=== PATIENT | male | born 1930 | race Caucasian/White ===

== ENCOUNTER → 2016-08-26 | Outpatient (REF) | payer OTHER ==
[~2016-08-26] MED LIST: ADV100INH INH; ADV500INH INH; BACI50OI EXT; BACITAB3 PO; BREO1INH INH; DILT120C82 PO; DOXY10CA PO; FERR325T3 PO; FLOM5CAP PO; GABA-279 PO; IPRASOL4 IN; KEFL250C6 PO; METF500T PO; METF500T4 PO; MIDO25TA PO; MULTCAP PO; PROT1TAB2 PO; SPIR1CAP INH; TIOT18INH INH; VITMTA PO; ZOCO20TA PO
== END ==
LOC: M LAB REF 12:30
PROVIDERS: ATTEND Nurse Practitioner Family
DX: I95.9 Hypotension, unspecified (principal)

== ENCOUNTER 2016-10-04 18:12 | Inpatient (IN) | payer OTHER ==
[~2016-10-04] VITALS: Ht 180.3 cm; Wt 82.1 kg
[2016-10-04] MEDS: BUDESONIDE 180MCG INHALER (PULMICORT FLEXHALER) INH SCH (02:05)
[~2016-10-04 18:12] MED LIST changes: +BACI500O74 EXT; -BACI50OI EXT
[2016-10-04 19:30] VITALS: BP 142/61
[2016-10-04] MEDS ORDERED: ONDANSETRON 4MG/2ML VIAL (J2405) As Ordered ONE (19:57)
[2016-10-04] MEDS ORDERED: HEPARIN SOD (PORCINE) 5000 UNITS/ML VIAL SC SCH (20:00)
[2016-10-04 20:30] VITALS: BP 119/60
[2016-10-04] MEDS ORDERED: GLUCOSE 4 GM CHEW TABLET PO PRN (20:30)
[2016-10-04] MEDS ORDERED: GLUCAGON FOR INJ 1 MG VIAL (J1610) SC PRN (20:30)
[2016-10-04] MEDS ORDERED: DEXTROSE 50% 50 ML SYRINGE IV PRN (20:30)
[2016-10-04 20:31] VITALS: BP 127/68
[2016-10-04] MEDS ORDERED: BACITAB3 PO (20:44)
[2016-10-04] MEDS ORDERED: CYCL5TA PO (20:44)
[2016-10-04] MEDS ORDERED: METOCLOPRAMIDE INJ 10MG/2ML VIAL (J2765) IV PRN (20:45)
[2016-10-04] MEDS ORDERED: PANT40TA2 PO (20:48)
[2016-10-04] MEDS ORDERED: DILT120C PO (20:48)
[2016-10-04] MEDS ORDERED: DICL100T6 PO (20:52)
[2016-10-04] MEDS ORDERED: FLOM5CAP PO (20:52)
[2016-10-04] MEDS ORDERED: PROA1AER INH (20:53)
[2016-10-04] MEDS ORDERED: SALI0.653 (20:53)
[2016-10-04] MEDS ORDERED: HumaLOG INSULIN (NovoLOG) PER UNIT SC SCH (21:00)
[2016-10-04] MEDS: SODIUM CHLORIDE NASAL 0.65% SPRAY BTL (OCEAN) SCH (21:00)
[2016-10-04 21:04] LABS: ABG BASE EXCESS -1.4 (-2.0-2.0); ABG HCO3 20.8 MEQ/L (22.0-26.0); ABG PARTIAL PRESSURE CO2 28.9 mmHg (35.0-45.0); ABG PARTIAL PRESSURE O2 55.8 mmHg (75.0-100.0); ABG STANDARD HCO3 23.2 MEQ/L (22.0-26.0); ABG TOTAL CO2 21.7 MEQ/L (23.0-31.0); ABG pH (ARTERIAL) 7.476 UNITS (7.350-7.450)
[2016-10-04 21:04] LABS: BASO % 0.4 % (0.0-1.0); EOS % 0.6 % (0.0-3.0); LARGE UNSTAINED CELL % 0.4 % (0.0-4.0); LYMPH # 0.4 K/mm3 (1.5-4.5); LYMPH % 5.5 % (24.0-44.0); MEAN CORPUSCULAR HEMOGLOBIN 31.1 pg (27.0-33.0); MEAN CORPUSCULAR HGB CONC 33.1 g/dl (32.0-36.5); MEAN CORPUSCULAR VOLUME 93.9 fl (80.0-96.0); MONO # 0.2 K/mm3 (0.0-0.8); MONO % 3.4 % (0.0-5.0); NEUTROPHILS # 6.2 K/mm3 (1.8-7.7); NEUTROPHILS % 89.8 % (36.0-66.0); PLATELET COUNT, AUTOMATED 185 k/mm3 (150-450); RED CELL DISTRIBUTION WIDTH 13.8 % (11.5-14.5); WHITE BLOOD COUNT 6.9 K/mm3 (4.0-10.0)
[2016-10-04] MEDS: IPRATROPIUM 0.5MG/ALBUTEROL 2.5MG INH SOL UD 3ML (DUONEB)(J7620) NEB PRN (21:13)
[2016-10-04 21:23] LABS: ALBUMIN 3.5 GM/DL (3.2-5.2); ALBUMIN/GLOBULIN RATIO 1.17 (1.00-1.93); ALKALINE PHOSPHATASE 123 U/L (45-117); ALT/SGPT 19 U/L (12-78); ANION GAP 10 MEQ/L (8-16); AST/SGOT 17 U/L (15-37); BILIRUBIN,TOTAL 0.9 MG/DL (0.2-1.0); BLOOD UREA NITROGEN 17 MG/DL (7-18); CALCIUM LEVEL 8.5 MG/DL (8.8-10.2); CARBON DIOXIDE LEVEL 24 MEQ/L (21-32); CHLORIDE LEVEL 105 MEQ/L (98-107); CREATININE FOR GFR 1.18 MG/DL (0.70-1.30); GLOMERULAR FILTRATION RATE > 60.0 (>35); GLUCOSE, FASTING 130 MG/DL (83-110); MAGNESIUM LEVEL 1.7 MG/DL (1.8-2.4); POTASSIUM SERUM 3.6 MEQ/L (3.5-5.1); SODIUM LEVEL 139 MEQ/L (136-145); TOTAL PROTEIN 6.5 GM/DL (6.4-8.2)
[2016-10-04 21:27] LABS: OSMOLALITY SERUM 291 MOSM/KG (280-301)
[2016-10-04] MEDS ORDERED: LevoFLOXacin IV 500 MG in APPROPRIATE DILUENT 1 EA IV SCH (22:00)
[2016-10-04] MEDS: ACETAMINOPHEN 650 MG SUPP PR PRN ×2 (22:50→23:15)
[2016-10-04 22:57] LABS: FERRITIN 144 NG/ML (26-388); PERCENT SATURATION 18.7 % (19.7-37.4); TOTAL IRON BINDING CAPACITY 321 UG/DL (250-450)
[2016-10-04 23:07] LABS: ERYTHROCYTE SEDIMENTATION RATE 21 mm/hr (0-30)
[2016-10-04] MEDS: LACTOBACILLUS ACIDOPHILUS CAP (BACID) PO SCH (23:12)
[2016-10-04] MEDS: NS 1,000 ML IV SCH (23:12)
[2016-10-04] MEDS: PANTOPRAZOLE 40MG INJ (PROTONIX) (C9113) IV SCH (23:13)
--- NOTE | 2016-10-04 23:13 | HPEPDOC ---
General Date of Admission Oct 04, 2016 at 19:25 Primary Care Physician: Minda Amaro Other Providers Cardiology: Dr. Hillman Attending Physician: ARNOLD SUTTON DO Chief Complaint The patient is a 86-year-old male admitted with a reason for visit of N/V/ Diarrhea. Source: Patient Exam Limitations: Clinical conditions, Physical impairment, Hard of hearing, Mild cognitive slowing, Other (Confused) Timing/Duration: Day(s) Severity: Severe Associated Symptoms: Cough, Fever, Chills, Loss of appetite, Malaise, Nausea, Vomiting, Shortness of breath, Weakness, Dizziness History of Present Illness 86 years old male with PMH of syncope, orthostatic hypotension, bradycardia s/p PPM, GERD, NIDDM2, iron deficiency anemia, COPD/emphysema GOLD stage 1, HTN, GERD, DJD, DLP, BPH, diverticulosis presented with nausea,vomiting, diarrhea, SOB. He was transferred from [facility]. At time of interview patient was confused wasn't able to answer much of the questions appropriately, however he was AAOx3 to person, place and year. He was able to provide that his symptoms started around 1 week ago with initially shortness of breath and chill and cough, no sputum, then over the past two days he developed nausea, vomiting , and diarrhea for multiple times a day and the stool eventually turned black. There is a question if he fell and landed on his right side, further questioning didn't produce any result, patient was confused. He is currently on 2L NC, he doesn't use O2 at home. He has T of 103.7 currently, EKG from [facility] shows PT prolongation, Anion Gap was 18 and Cr was 1, Trop was 0.01. Patient admits to chill, vomiting, diarrhea, shortness of breath. Denies chest pain, abdominal pain, problems with urination. According to nurses note however patient admits to yellow sputum to her, patient denies sputum when I asked her. According to pharmacy patient's girlfriend who lives with patient has been giving him his medications. Patient's answers doesn't appears to be reliable, he is a poor historian. Home Medications Scheduled (Saline Nasal [place]) 0.65 % Spr 0.65 % NA BID (Reported) Diltiazem HCl (Diltiazem HCl ER) 120 Mg Cap 120 MG PO DAILY (Reported) Fluticasone/Vilanterol (Breo Ellipta 100-25 Mcg/INH) 1 Inh Inh 1 PUFF INH DAILY (Reported) Gabapentin (Gabapentin) 100 Mg Cap 200 MG PO BID (Reported) Lactobacillus Acidophilus (Bacid) 1 Tab Tab 1 TAB PO BID (Reported) Metformin Hydrochloride (Metformin HCl) 500 Mg Tab 500 MG PO QHS (Reported) Multivitamins *[facility] STOCKED* (Thera M Plus *[facility] STOCKED*) 1 Tab Tab 1 TAB PO DAILY (Reported) Pantoprazole Sodium (Pantoprazole Sodium) 40 Mg Tab 40 MG PO DAILY (Reported) Simvastatin (Zocor) 20 Mg Tab 20 MG PO QHS (Reported) Tamsulosin Hydrochloride (Flomax) 0.4 Mg Cap 0.4 MG PO DAILY (Reported) Tiotropium [place] Monohydrate (Spiriva Handihaler) 18 Mcg Cap 1 INHALATION INH DAILY (Reported) Scheduled PRN Albuterol Sulfate (Proair Hfa) 108 Mcg/Act Aer 1 PUFF INH Q4H PRN PRN SHORTNESS OF BREATH (Reported) Albuterol/Ipratropium (Ipratropium [place]/Albut 0.5-2.5 (3) mg/3Ml) 1 Shon Shon 1 SHON IN Q4HP PRN PRN WHEEZING (Reported) Allergies Coded Allergies: Codeine (Verified Allergy, Unknown, 10/11/12) Valsartan (Verified Allergy, Unknown, 10/11/12) Propoxyphene (Unverified Adverse Reaction, Unknown, CAUSED AGITATION, ) PT TAKES DARVOCET EVERDAY AT HOME Past Medical History Medical History * syncope, * orthostatic hypotension * bradycardia s/p PPM * GERD * NIDDM2 * iron deficiency anemia * COPD/emphysema GOLD stage 1 * HTN * GERD * DJD * DLP * BPH * diverticulosis Surgical History * Appendectomy * Cholecystectomy * Back Surgery * Left inguinal hernia repair * Permanent pacemaker placement for bradycardia * EGD/Colonoscope Family History Significant Family History: Noncontributory Social History * Smoker: Denies, former Smoker, quit greater than 1 year Alcohol: Denies Drugs: denies Recent Travel/Sick Contacts: Denies: Recent sick contacts, Recent travel Lives with girlfriend 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, 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 Review of Symptoms Constitutional: Reports: Chills, Fever, Lethargy, Malaise, Weight Loss (4 pounds over past few weeks ) Eyes: Denies: Vision change ENT: Reports: Other Symptoms (cough but no sputum per patient), Denies: Sore Throat Skin: Denies: Rash Pulmonary: Reports: Cough, Dyspnea Cardiovascular: Reports: Lt Headedness, Denies: Chest Pain Gastrointestinal: Reports: Diarrhea, Nausea, Other Symptoms (black looking stool), Vomiting Genitourinary: Denies: Dysuria, Frequency, Hematuria, Incontinence, Other Symptoms, Retention Hematologic: Reports: Other Hematologic (black stool) Musculoskeletal: Denies: Neck Pain Neurological: Reports: Weakness Other systems Patient is a poor historian and currently confused Physical Examination General Exam: Positive: Cooperative, Mild Distress, Other (confused, doesn't answer questions apropriately ) Eye Exam: Positive: EOMI, PERRLA ENT Exam: Positive: Atraumatic, Negative: Mucous membr. moist/pink (dry) Neck Exam: Positive: Supple, Negative: JVD Chest Exam: Positive: Diminished, Rhonchi (mild b/l) Heart Exam: Positive: Normal S1, Normal S2, Other (distant heart sounds due to increased AP diameter of chest), Tachycardic Abdomen Exam: Positive: Normal bowel sounds, Soft, Negative: Tenderness Extremity Exam: Negative: Clubbing, Cyanosis, Edema, Tenderness Skin Exam: Negative: Rash Neuro Exam: Positive: Cranial Nerves 3-12 NL, Strength at 5/5 X4 ext Psych Exam: Positive: Anxiety, Oriented x 3 Vital Signs T 103.8, P 115, RR 26, BP 145/61, O2 Sat 92% 2L NC Laboratory Data Labs 24H Laboratory Tests 2 10/04/16 20:32: Urine Amorphous Sediment , Urine Appearance CLEAR, Urine Color YELLOW, Urine pH 5.0, Urine Specific [place] 1.035, Urine Protein NEGATIVE, Urine Glucose (UA) NEGATIVE, Urine Ketones NEGATIVE, Urine Urobilinogen 0.2, Urine Bilirubin NEGATIVE, Urine Leukocyte Esterase NEGATIVE, Urine Bacteria (Auto) NEGATIVE, Urine Blood NEGATIVE, Urine Calcium Carbonate Cryst(Auto) , Urine Calcium Oxalate Cryst (Auto) , Urine Calcium Phosphate Kadi (Auto) , Urine Cellular Casts , Urine Cystine Crystals , Urine Granular Casts (Auto) , Urine Hyaline Casts (Auto) 0, Urine Leucine Crystals , Urine Mucus (Auto) , Urine Nitrite NEGATIVE, Urine Oval Fat Bodies (Auto) , Urine RBC (Auto) 1, Urine Renal Epithelial Cells , Urine Sperm (Auto) , Urine Squamous Epithelial Cells 0, Urine Transitional Epithelial Cells , Urine Trichomonas (Auto) , Urine Triple Phosphate Cryst (Auto) , Urine Tyrosine Crystals , Urine Uric Acid Crystals ( Auto) , Urine WBC (Auto) 0, Urine Waxy Casts (Auto) , Urine Yeast-Like Cells ( Auto) 10/04/16 20:43: White Blood Count 6.9, Red Blood Count 4.72, Hemoglobin 14.7, Hematocrit 44.3, Mean Corpuscular Volume 93.9, Mean Corpuscular Hemoglobin 31.1, Mean Corpuscular Hemoglobin Concent 33.1, Red Cell Distribution Width 13.8, Platelet Count 185, Neutrophils (%) (Auto) 89.8H, Lymphocytes (%) (Auto) 5.5L, Monocytes (%) (Auto) 3.4, Eosinophils (%) (Auto) 0.6, Basophils (%) (Auto) 0.4, Neutrophils # (Auto) 6.2, Lymphocytes # (Auto) 0.4L, Monocytes # (Auto) 0.2, Eosinophils # (Auto) 0.0, Basophils # (Auto) 0.0, Large Unclassified Cells # 0.0 , Large Unclassified Cells % 0.4 10/04/16 20:49: Salicylates Level < 1.7L 10/04/16 20:51: Arterial Blood pH 7.476H, Arterial Blood Partial Pressure CO2 28.9L, Arterial Blood Partial Pressure O2 55.8L, Arterial Blood Total CO2 21.7L, Arterial Blood HCO3 20.8L, Arterial Blood Base Excess -1.4, Arterial Blood Oxygen Saturation 90.8L, Blood Gas Bicarbonate Standard 23.2 CBC/BMP Laboratory Tests 10/04/16 20:43 Red Blood Count 4.72, Mean Corpuscular Volume 93.9, Mean Corpuscular Hemoglobin 31.1, Mean Corpuscular Hemoglobin Concent 33.1, Red Cell Distribution Width 13.8 , Neutrophils (%) (Auto) 89.8 H, Lymphocytes (%) (Auto) 5.5 L, Monocytes (%) ( Auto) 3.4, Eosinophils (%) (Auto) 0.6, Basophils (%) (Auto) 0.4, Neutrophils # ( Auto) 6.2, Lymphocytes # (Auto) 0.4 L, Monocytes # (Auto) 0.2, Eosinophils # ( Auto) 0.0, Basophils # (Auto) 0.0 Microbiology Microbiology 10/04/16 Blood Culture, Received Pending 10/04/16 Blood Culture, Received Pending 10/04/16 Respiratory Virus Panel (PCR) (LU), Received Pending 10/04/16 Urine Culture, Received Pending RAD Interpretation STUDY: CXR (From [facility]) Rad Actions: Wet Read Reviewed, Films Reviewed, Other Rad Comments: (From [facility], reviewed the CD, no obvious infiltrates) STUDY: CT Abdomen and Pelvis from [facility] Rad Actions: Report Reviewed, Films Reviewed, Other Rad Comments: (RLL nodual, soft tissue nodual 12 mm anterior left hemipelvis, diverticulosis) STUDY: CT Chest (Done at [facility]) Rad Actions: Wet Read Reviewed, Report Not Available, Films Reviewed, Other Rad Comments: (bilateral low lobes infiltrates) Assessment/Plan 86 years old male with PMH of syncope, orthostatic hypotension, bradycardia s/p PPM, GERD, NIDDM2, iron deficiency anemia, COPD/emphysema GOLD stage 1, HTN, GERD, DJD, DLP, BPH, diverticulosis who was transferred from [facility] presented with: 1. Severe Sepsis likely secondary to bilateral lower lob infiltrates shows on CT Chest L>R, official report pending, will follow. - WBC at [facility] was 11.8, here was 6.9, CRP/ESR, Resp Panel pending, will follow - Start IV Abx with Levoquin 500 mg q24 hours due to prolonged QT and reduced CrCl adjusted with pharmacy - DuoNebs with Inhaled steroid, hold home inhaler for now, consider IV steroid if patient develop wheezing - Continue O2 at 2L and titrate between 88-92% due to mild COPD at baseline - LA 1.8, UA negative, GI panel is pending due to diarrhea, blood cultures pending - Close monitoring due to confusion, T of 103.7, tachycardia, tachypnea, guarded prognosis due to age 2. Hypoxemia respiratory failure 2/2 sepsis and CAP - See above, patient doesn't use O2 at home and is now on 2 L NC 3. Nausea/vomiting/diarrhea - Etiology unclear likely related to severe sepsis - CT of A&P at [facility] didn't have acute findings - GI panel pending - IVF with NS at 120 ml/h - Clear liquid diet for now and aspiration precaution 4. Near Syncope with fall likely 2ndary to sepsis - Landed on elbow, didn't hit head and no LOC - continue to monitor - He did have history of syncope and orthostatic hypotension - Hold statin for now due to it can interact with Diltiazem and cause muscle weakness - Hold Flomax for now due to it can cause dizziness and fall, restart as needed - Fall precaution - PT consulted - Orthostatic VS 5. Confusion likely due to encephalopathy from severe sepsis - continue plan above 6. Dark stool in diarrhea possible GI bleed - Fecal occult blood ordered, result pending - Hold chemical DVT prophylaxis - Continue SCD/Teds 7. QT prolongation on EKG done in [facility], likely from medication and acute illness - QT/QTc was 388/487 at [facility] - Patient did receive 4mg Zofran before the EKG was taken - Will only give Reglan here for n/v - repeat EKG shows QT of 336 8. Elevated anion gap of 18 in [facility] - Repeat gap was only 10 - Possible due to severe sepsis - continue close monitoring 9. New CT findings of RLL nodule and 12 mm anterior left hemipelvic nodule on CT A&P at [facility] - CT chest result pending - Patient likely need outpatient follow up. 10. Hx of syncope, orthostatic hypotension - Please see above, continue to monitor 11. Bradycardia s/p PPM - Repeat EKG in AM, no elevation of troponin 12. GERD - Con PPI 13. NIDDM2 -Hold Metformin -ISS 14. Iron deficiency anemia -Check Iron/B12/Folate 15. COPD/emphysema GOLD stage 1 -Had exacerbation [place] [address] Garcia -Continue to monitor -Possible adding IV steroid 16. HTN -Continue Diltiazem CD 120 mg PO daily hold for SBP <130 or HR <65 17. DJD -Con tylenol 18. DLP -Hold Statin for now due to it cause muscle weakness with Cardizem 19. BPH - Hold Flomax for now due to fall 20. diverticulosis - Close monitor -Possible GI bleed DVT prophylaxis: SCD only for now due to possible GI bleed Code Status: Patient would like to be Full Code Addendum: At 12:30 Nurse reported patient's BP dropped to 70/50 on manual BP. Patient likely has progression of severe sepsis and possible septic shock. Patient was seen my resident and attending again in the room. Will start patient on empiric antibiotic, Vancomycin 1g qdaily and Zosyn 3.375 g q6H. Give him 2 L fluid boluses. If patient's BP respond poorly or if patient's BP remains low will transfer patient to ICU. Plan / VTE VTE Prophylaxis Ordered?: Yes (scd only due to possible GI bleed) GME ATTESTATION GME ATTESTATION My preceptor for this patient encounter was physically present in the building during the encounter and was fully available. As needed, all aspects of the patient interview, examination, medical decision making process, and medical care plan development were reviewed and approved by the preceptor. Preceptor is aware and concurs with the plan as stated in the body of this note and will attest to such by his/her cosignature. SHAVONNE YIP DO Oct 04, 2016 23:12
[2016-10-04 23:55] VITALS: BP 70/50
[2016-10-05] VITALS (41 sets, daily range): BP systolic 72–118; BP diastolic 40–64; O2SAT 94
[2016-10-05] MEDS ORDERED: NS 1,000 ML IV ONE ×4 (00:30→04:30)
[2016-10-05] MEDS ORDERED: VANCOMYCIN HCL 1,000 MG, VIAL MATE ADAPTER 1 EACH in D5W 250 ML IV ONE (01:00)
--- NOTE | 2016-10-05 01:10 | PHACANCOPD ---
PHARMACY VANCOMYCIN DOSING Pt Demographics Demographics Patient Age:86 , Weight:76.200 , Gender: male Adjusted Body Weight Date: 10/05/16, Adjusted Body Weight: [62] Kg Events Past 24 Hours Events Past 24 Hours: NO: Change in CrCl, Dialysis, Diuretic Therapy, Elevation in WBC, Fever, Other, Pending Diagnostics, Pending Procedures Vancomycin Vancomycin Target Ranges: 15-20 mcg/ml Vancomycin Load Y/N: Yes Load Dose Date Time Vancomycin Load Dose: 1500MG Date: 10-05 Time: 0200 Vancomycin Dose Date: 10/05/16. Current Vancomycin Dose: [1000MG Q24H] Intermittent Dosing?: No Labs Labs Item Value Date Time White Blood Count 6.9 K/mm3 10/04/162042 Creatinine 1.18 MG/DL 10/04/162042 Vital Signs Label Value Date Time Patient Temperature 100.0 degrees F 10/04/16 2355 Temperature Source Core 10/04/16 2355 Micro Microbiology 10/04/16 Blood Culture, Received Pending 10/04/16 Blood Culture, Received Pending 10/04/16 Respiratory Virus Panel (PCR) (LU) - Final, Complete 10/04/16 Urine Culture, Received Pending Creatinine Clearance Date:10/05/16. Creatinine Clearance: [34]. Pending Labs Trough 04-04 @0000 Assessment and Plan Maintaining Current Dose?: Yes Reason for dose change: No Dose Change Pharmacist Note Pharmacist Note Date: 10/05/16. Pharmacist note:Dosed at 1000mg q24h with a trough ordered for 04- 04 @0000. Will continue to monitor and make adjustments as needed. JERO DAVIS PHARMACY Oct 05, 2016 01:10
[2016-10-05] MEDS: PIPERACILLIN/TAZOBACTAM SOD 3.375 GM in D5W MINI-BAG PLUS 50 ML IV SCH ×4 (02:00→20:21)
[2016-10-05] MEDS ORDERED: BUDESONIDE 0.5 MG/2 ML INHALATION SUSPENSION INH ONE (02:30)
[2016-10-05] MEDS: ACETAMINOPHEN 650 MG SUPP PR PRN (02:30)
[2016-10-05] MEDS: IPRATROPIUM 0.5MG/ALBUTEROL 2.5MG INH SOL UD 3ML (DUONEB)(J7620) NEB PRN ×2 (02:48→19:39)
[2016-10-05] MEDS ORDERED: VANCOMYCIN HCL 500 MG in D5W MINI-BAG PLUS 100 ML IV ONE (03:00)
[2016-10-05] MEDS: MAG SULF 1GM/100ML (MAG RUN) 1 GM in APPROPRIATE DILUENT 1 EA IV ONE ×2 (04:20→05:36)
[2016-10-05 04:33] LABS: BLOOD UREA NITROGEN 18 MG/DL (7-18); CARBON DIOXIDE LEVEL 21 MEQ/L (21-32); CHLORIDE LEVEL 108 MEQ/L (98-107); CREATININE FOR GFR 1.25 MG/DL (0.70-1.30); GLUCOSE, FASTING 139 MG/DL (83-110); POTASSIUM SERUM 3.3 MEQ/L (3.5-5.1)
[2016-10-05 04:45] LABS: ABG BASE EXCESS -4.8 (-2.0-2.0); ABG HCO3 18.1 MEQ/L (22.0-26.0); ABG PARTIAL PRESSURE CO2 27.6 mmHg (35.0-45.0); ABG STANDARD HCO3 20.4 MEQ/L (22.0-26.0); ABG pH (ARTERIAL) 7.435 UNITS (7.350-7.450)
[2016-10-05 04:45] LABS: DIFF SLIDE NUMBER 53; MEAN CORPUSCULAR HEMOGLOBIN 30.1 pg (27.0-33.0); PLATELET COUNT, AUTOMATED 169 k/mm3 (150-450); RED CELL DISTRIBUTION WIDTH 13.8 % (11.5-14.5); WHITE BLOOD COUNT 18.2 K/mm3 (4.0-10.0)
[2016-10-05 04:51] LABS: CALCIUM LEVEL 7.3 MG/DL (8.8-10.2)
[2016-10-05] MEDS ORDERED: NOREPINEPHRINE 4 MG/4 ML AMP As Ordered ONE (05:18)
[2016-10-05] MEDS ORDERED: NOREPINEPHRINE BITARTRATE 8 MG in D5W 500 ML IV SCH (05:24)
[2016-10-05] MEDS ORDERED: KCL 20MEQ IN 100ML SWI (KRUN) 20 MEQ in APPROPRIATE DILUENT 1 EA IV ONE ×2 (05:30)
[2016-10-05] MEDS ORDERED: MAG SULF 1GM/100ML (MAG RUN) 1 GM in APPROPRIATE DILUENT 1 EA IV ONE (05:30)
[2016-10-05 05:34] LABS: BANDS 4 % (< 11)
[2016-10-05] MEDS: NS 1,000 ML IV SCH (05:42)
[2016-10-05] MEDS ORDERED: HumaLOG INSULIN (NovoLOG) PER UNIT SC SCH ×2 (06:00→07:30)
[2016-10-05] MEDS ORDERED: NS 1,000 ML IV SCH (06:15)
[2016-10-05] MEDS ORDERED: PNEUMOCOCCAL VACCINE 0.5ML SYRINGE(90732) PNEUMOVAX 23 IM SCH (06:15)
--- NOTE | 2016-10-05 07:08 | RO ---
DATE OF PROCEDURE: 10/05/2016 Time patient was seen was at 0510 hours. PREPROCEDURE DIAGNOSIS: Hypotension. POSTPROCEDURE DIAGNOSIS:Hypotension PROCEDURE: Right IJ central line placement. SURGEON: Boogie Garcia DO NUTRITION SERVICES WORKER: Lisy Light DO ANESTHESIA: 1% lidocaine INDICATION: This is an 86-year-old male with severe sepsis, hypotension and septic shock with bilateral lower lobe infiltrates, left side greater than the right side. CONSENT: Detailed explanation of the procedure, treatment options, risks including but not limit to infection, bleeding, damage to the surrounding tissue , and the benefits were explained to the patient. A written informed consent was obtained. TECHNIQUE: A time out was performed identifying correct procedure, correct location with the nursing staff. The right side of the neck was prepped with 2% chlorhexidine and draped with full sterile sheet in the usual fashion. 1% lidocaine was administered subcutaneously for local anesthesia. The right IJ vein was accessed under ultrasound guidance with an 18 gauge thin wall needle. A triple lumen catheter was inserted via Seldinger technique. Blood was withdrawn from lumens and flushed with normal saline. The catheter was sutured in placed and sterile dressing was applied over the side prior to removal of the drapes. The patient tolerated the procedure well and there were no complications. Chest x-ray was done and confirmed that the TLC was in the correct location. ESTIMATED BLOOD LOSS: Less than 10 mL. COMPLICATIONS: None. The patient has been discussed with attending doctor, Dr. Garcia. My preceptor for this patient encounter was Dr. Boogie Garica. The preceptor was physically present in the room and assisted and performed critical parts of the exam. Dr. Garcia was at bedside during the encounter and was fully available. As needed, all aspects of the patient interview, examination, medical decision making process, and medical care plan development were reviewed and approved by the preceptor. The preceptor is aware and concurs with the plan as stated in the body of this note and will attest to such by his/her cosignature. I, Boogie Garcia, performed the above procedure with the assistance of the resident Dr. Light. I agree with the above. [facility]
[2016-10-05 07:30] LABS: ANION GAP 12 MEQ/L (8-16); SODIUM LEVEL 141 MEQ/L (136-145)
[2016-10-05] MEDS: SUCRALFATE SUSP 1GM/10ML UD PO SCH ×3 (07:30→17:33)
--- NOTE | 2016-10-05 07:38 | CCN ---
DATE: 10/05/2016 Critical care time is 1 hour. This excludes all procedures. I was called urgently to the patient's bedside for persistent hypotension despite at least 4 liters of IV fluids. The patient was awake, able to tell me his name. He is known to me for mild COPD and is followed in my office. He did not recognize me right away. He was unable to give much history. Apparently, he was has had multiple days of cough and shortness of breath and most recently two days of nausea, vomiting and diarrhea. He was a direct transfer from [facility]. He presented confused, thought to have a metabolic encephalopathy from sepsis. Question of GI bleed, more than adequate hemoglobin. PHYSICAL EXAMINATION: Temperature is 100.2, pulse is 95, respiratory rate is 20, blood pressure is 80/50 with a mean arterial pressure of 60, oxygen saturation 94% on 2 liters. GENERAL: The patient is anxious, tachypneic, laying in bed. He is not using accessory muscles of breathing. HEENT: Sclerae clear and anicteric. Mucous membranes are dry. He is edentulous. Tongue is midline. NECK: Supple. No tracheal deviation or mass. No thyromegaly. LYMPHS: No cervical, supraclavicular, or axillary adenopathy. CARDIAC: Tachycardic. S1 and S2 without audible murmur, rub or gallop. No elevated JVP. PMI is nondisplaced. PULMONARY: Decreased breath sounds bilaterally. I do not did not auscultate any rhonchi or wheeze anteriorly. ABDOMEN: Soft, nontender, nondistended with hypoactive bowel sounds. EXTREMITIES: No cyanosis, clubbing or edema. SKIN: No rashes, jaundice or bruising. MUSCULOSKELETAL: Muscle tone is normal for stated age. No evidence of fracture or joint effusion. NEUROLOGIC: Some confusion but is alert to person. Expresses understanding of the situation. No unilateral weakness or tremor. LABORATORY EVALUATION: White blood cell count of 6.9 which is now 18. Hemoglobin of 11.6 from 14, this is after at least 4 liters of fluid. Platelet count of 169. Sodium is 141, potassium is 3.3, chloride is 108, bicarb is 21, anion gap is 12, albumin of 3.5. Sodium is 141, potassium 3.3, chloride 108, BUN is 18, creatinine is 1.25, fasting glucose is 139. Most recent arterial blood gas shows a pH of 7.44, pCO2 of 28, PaO2 of 64 on 2 liters of oxygen. Chest CT from October 04, 2016 shows a dense left lower lobe infiltrate. No other significant findings. IMPRESSION: 1. Septic shock, likely from left lower lobe pneumonia. I have discontinued Levaquin. He is on Zosyn and vancomycin. Will initiate Levophed. CVP is around 12-14. Will check CV02 to ensure adequate cardiac output. The patient is FULL CODE and would like everything done at this point in time. 2. Left lower lobe pneumonia. Agree with current antibiotic coverage until infectious source identified. Will continue with mucociliary techniques. 3. Hypokalemia. Replaced IV. 4. Hypomagnesemia. Replaced IV. Patient recently with diarrhea. 5. Questionable history of GI bleed. The patient had dark stools; however, I believe he is on iron replacement. Continue to monitor for signs of GI bleed. He has had no bowel movement since he has been admitted. 6. Lactic acidosis. Will continue to monitor for fluid responsiveness and urine output. Critical care time 1 hour. This excludes all procedures.
--- NOTE | 2016-10-05 08:02 | REP ---
Clinical: Central line placement. Comparison: 05/15/2016. Findings: Right IJ line with tip in the SVC. Mediastinum and cardiac silhouette stable. Lung kwok demonstrate diffuse chronic interstitial changes. Left lower lobe consolidation/atelectasis and right basilar atelectasis cannot be excluded. No obvious effusion. No pneumothorax. Skeletal structures intact. Impression: 1. Right IJ line with tip in the SVC. No pneumothorax. 2. Left lower lobe/retrocardiac infiltrate and bibasilar atelectasis. Signed by Noah Rodriguez MD 10/05/2016 07:53 A
[2016-10-05] MEDS ORDERED: POTASSIUM CHLORIDE 10 MEQ SR TABLET PO ONE (08:15)
[2016-10-05] MEDS: TIOTROPIUM INHALER/CAPSULE (SPIRIVA) INH SCH (08:43)
[2016-10-05] MEDS: BUDESONIDE 180MCG INHALER (PULMICORT FLEXHALER) INH SCH ×2 (08:43→19:38)
[2016-10-05] MEDS: TAMSULOSIN 0.4 MG CAP PO SCH (08:53)
[2016-10-05] MEDS: LACTOBACILLUS ACIDOPHILUS CAP (BACID) PO SCH ×2 (08:53→20:21)
[2016-10-05] MEDS: PANTOPRAZOLE 40MG INJ (PROTONIX) (C9113) IV SCH ×2 (08:54→20:21)
[2016-10-05] MEDS: MULTIVITAMINS/MINERALS THERAP 1 TAB PO SCH (08:54)
[2016-10-05] MEDS: SODIUM CHLORIDE NASAL 0.65% SPRAY BTL (OCEAN) SCH ×2 (08:54→20:21)
[2016-10-05] MEDS: ACETAMINOPHEN TAB 650MG DOSE (2X325MG) PO PRN ×2 (09:11→17:33)
--- NOTE | 2016-10-05 11:19 | ECGEPIP ---
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
--- NOTE | 2016-10-05 11:19 | ECGEPIP ---
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
--- NOTE | 2016-10-05 11:22 | ECGEPIP ---
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
[2016-10-05] MEDS: HumaLOG INSULIN (NovoLOG) PER UNIT SC SCH ×3 (11:58→21:00)
[2016-10-05] MEDS: KCL 20MEQ in NS 1000ML 1,000 ML IV SCH (13:14)
--- NOTE | 2016-10-05 14:56 | IPN ---
DATE: 10/05/2016 Patient seen and examined. Admitted overnight. This morning reported improvement of strength. Continues to be very weak. Denies any shortness of breath, report of cough. Denies any chest pain, pressure or discomfort. The patient is still on pressors, Levophed. Reported nausea and vomiting have resolved, as well as diarrhea. Denies any abdominal pain. VITAL SIGNS: Temperature 98.7, pulse 82, respirations 20, blood pressure 101/57, pulse oximetry 96% on room air. LABORATORIES: WBC 18, hemoglobin and hematocrit 11.6/36.2, platelets 169. Chemistries: Sodium 141, potassium 3.3, chloride 108, bicarb 21, BUN 18, creatinine 1.25, lactic acid down to 2.1. PHYSICAL EXAMINATION: GENERAL: Patient is comfortable in no acute distress. HEENT: Normocephalic, atraumatic. NECK: Supple. PULMONARY: Mild bilateral rhonchi. CARDIAC: Regular rate and rhythm. Normal S1 and S2. ABDOMEN: Soft, nontender, nondistended. EXTREMITIES: No edema bilateral lower extremities. ASSESSMENT/PLAN: This is a 86-year-old male patient with underlying medical history of syncope, orthostatic hypotension, bradycardia, status post pacemaker, GERD, nci-eokmzvd-eneyrlmfq diabetes, iron deficiency anemia, chronic obstructive pulmonary disease (COPD), emphysema GOLD stage 1, hypertension, GERD, degenerative joint disease (DJD), dyslipidemia, benign prostatic hypertrophy (BPH), diverticulosis, presented with nausea, vomiting, shortness of breath, diarrhea and cough. Admitted with severe sepsis secondary to pneumonia. 1. Severe sepsis, septic shock secondary to bilateral lower lobe pneumonia. Oxygen supplementation. Followup C-reactive protein. Followup WBC. Respiratory panel negative. Initially given Levaquin. Currently antibiotics switched to Zosyn and vancomycin. Followup C-reactive protein. Followup WBC. Oxygen supplementation. Patient is on pressor, Levophed. Followup CVP. Repeat lactic acid. Initial CVP was 14. Fluids were held. Later CVP was 9. Maintenance fluids were restarted. Will continue to monitor. 2. Hypoxia. Likely secondary to sepsis and pneumonia. Continue oxygen supplementation. 3. Nausea, vomiting, diarrhea. Unclear etiology. Possibly related to underlying infection. CT scan of the abdomen and pelvis from [place] shows no significant acute findings. GI panel if diarrhea persistent. IV fluids for maintenance. Advance diet as tolerated. Aspiration precautions. 4. Pelvic lesions, questionable on CT scan in [place]. Will repeat a CT of the abdomen with contrast tomorrow to further assess. Might need outpatient followup in terms of biopsy with resolution of current symptoms. 5. Near syncope. Likely secondary to sepsis, septic shock and hypotension. Will do physical therapy after the patient is recovered for precautions. Physical therapy once the patient is improved. 6. Confusion. Likely encephalopathic secondary to septic shock. Supportive care. Treatment for sepsis as above. 7. Dark stool diarrhea. Rule out GI bleed. Followup fecal occult. Follow hemoglobin and hematocrit. Hold anticoagulation for now. 8. QTc prolongation on EKG. Monitor on telemetry. Repeat EKG shows normal QTc. 9. CT scan finding of right lower lobe nodules and 11 mm anterior hemipelvic nodules. Repeat CT scan of the abdomen and pelvis. Will need outpatient followup, possible biopsy. 10. History of syncope. Will continue to monitor. Will do physical therapy and orthostatics once the patient is improved. 11. History of bradycardia. Patient has a pacemaker. 12. Gastroesophageal reflux disease (GERD). Continue proton pump inhibitor (PPI). 13. Ira-hbmpkgt-hixxqwili diabetes. Holding metformin. Insulin as per protocol. Followup fingerstick. 14. Iron deficiency anemia. Continue to follow hemoglobin and hematocrit. Anemia workup as ordered. 15. COPD. Pulmonology consulted. Continue to monitor. Patient currently not having significant wheeze. Nebulizer treatment. Pulmicort, Spiriva. Supportive care. 16. Hypertension. Continue diltiazem. Monitor blood pressure. 17. Degenerative joint disease (DJD). Supportive care. Continue medications as ordered. 18. Dyslipidemia. Continue statin. 19. Benign prostatic hypertrophy (BPH). Continue Flomax. 20. Diverticulosis. Close monitoring. 21. Deep vein thrombosis (DVT) prophylaxis. Sequential compression devices (SCD). If the patient's hemoglobin and hematocrit is stable, will resume heparin. DISPOSITION: Patient currently remains critically ill. Will continue to monitor.
--- NOTE | 2016-10-05 16:21 | REPUSA ---
CT of the chest without contrast Clinical statement: acute respiratory distress. Technique: Multiple axial CT images were obtained with 5 mm cuts through the chest without administra tion of contrast. Coronal and sagittal reconstructions were obtained. Comparison: 12/20/2014. Findings: There is no thoracic lymphadenopathy. The visualized portions of the thyroid gland is unrem arkable. There is a small focal area consolidation in the medial right lower lobe. There is a large a juan alberto of consolidation and infiltrate in the left lower lobe. Scattered linear interstitial changes are seen in the right upper lobe, likely representing scarring. Limited imaging of the upper abdomen stacy s not demonstrate any acute abnormalities. There are no suspicious osseous lesions. Impression: Bilateral lower lobe pneumonias, worse on the left. Mild scarring in the right upper lobe , which is stable since 2014.
[2016-10-05] MEDS: PRAVASTATIN 20 MG TAB PO SCH (20:21)
[2016-10-06] VITALS (15 sets, daily range): BP systolic 99–134; BP diastolic 56–80
[2016-10-06] MEDS: VANCOMYCIN HCL 1,000 MG, VIAL MATE ADAPTER 1 EACH in D5W 250 ML IV SCH (01:05)
[2016-10-06] MEDS: KCL 20MEQ in NS 1000ML 1,000 ML IV SCH (01:05)
[2016-10-06] MEDS: PIPERACILLIN/TAZOBACTAM SOD 3.375 GM in D5W MINI-BAG PLUS 50 ML IV SCH ×4 (02:44→19:59)
[2016-10-06] MEDS: ACETAMINOPHEN TAB 650MG DOSE (2X325MG) PO PRN (03:51)
[2016-10-06 06:11] LABS: BASO % 0.2 % (0.0-1.0); EOS # 0.1 K/mm3 (0.0-0.50); EOS % 0.6 % (0.0-3.0); LARGE UNSTAINED CELL # 0.1 K/mm3 (0.0-0.4); LARGE UNSTAINED CELL % 0.7 % (0.0-4.0); LYMPH # 1.2 K/mm3 (1.5-4.5); LYMPH % 6.5 % (24.0-44.0); MEAN CORPUSCULAR HEMOGLOBIN 30.9 pg (27.0-33.0); MEAN CORPUSCULAR HGB CONC 32.9 g/dl (32.0-36.5); MONO # 0.6 K/mm3 (0.0-0.8); MONO % 3.6 % (0.0-5.0); NEUTROPHILS # 14.8 K/mm3 (1.8-7.7); NEUTROPHILS % 88.4 % (36.0-66.0); PLATELET COUNT, AUTOMATED 138 k/mm3 (150-450); RED CELL DISTRIBUTION WIDTH 14.2 % (11.5-14.5); WHITE BLOOD COUNT 16.7 K/mm3 (4.0-10.0)
[2016-10-06 06:46] LABS: ANION GAP 8 MEQ/L (8-16); BLOOD UREA NITROGEN 14 MG/DL (7-18); CALCIUM LEVEL 7.7 MG/DL (8.8-10.2); CARBON DIOXIDE LEVEL 20 MEQ/L (21-32); CHLORIDE LEVEL 111 MEQ/L (98-107); CREATININE FOR GFR 1.11 MG/DL (0.70-1.30); GLOMERULAR FILTRATION RATE > 60.0 (>35); GLUCOSE, FASTING 139 MG/DL (83-110); MAGNESIUM LEVEL 2.1 MG/DL (1.8-2.4); POTASSIUM SERUM 3.8 MEQ/L (3.5-5.1); SODIUM LEVEL 139 MEQ/L (136-145)
[2016-10-06] MEDS ORDERED: GASTROGRAFIN SOLUTION 30ML PO ONE (07:00)
[2016-10-06] MEDS: TIOTROPIUM INHALER/CAPSULE (SPIRIVA) INH SCH (07:14)
[2016-10-06] MEDS: BUDESONIDE 180MCG INHALER (PULMICORT FLEXHALER) INH SCH ×2 (07:14→20:09)
[2016-10-06] MEDS ORDERED: GASTROGRAFIN SOLUTION 30ML (Q9963) PO ONE (07:30)
[2016-10-06] MEDS: SUCRALFATE SUSP 1GM/10ML UD PO SCH ×3 (07:52→17:01)
[2016-10-06] MEDS: HumaLOG INSULIN (NovoLOG) PER UNIT SC SCH ×4 (07:52→21:00)
[2016-10-06] MEDS ORDERED: ISOVUE-370 76% 100ML VIAL (Q9967) As Ordered ONE (08:32)
[2016-10-06 09:35] LABS: VITAMIN B12 LEVEL 388 PG/ML (247-911)
[2016-10-06 09:36] LABS: FOLATE > 24.0 NG/ML (>5.4)
[2016-10-06] MEDS: SODIUM CHLORIDE NASAL 0.65% SPRAY BTL (OCEAN) SCH ×2 (09:50→20:02)
[2016-10-06] MEDS: LACTOBACILLUS ACIDOPHILUS CAP (BACID) PO SCH ×2 (09:50→20:02)
[2016-10-06] MEDS: PANTOPRAZOLE 40MG INJ (PROTONIX) (C9113) IV SCH ×2 (09:50→20:02)
[2016-10-06] MEDS: MULTIVITAMINS/MINERALS THERAP 1 TAB PO SCH (09:51)
[2016-10-06] MEDS: TAMSULOSIN 0.4 MG CAP PO SCH (09:51)
[2016-10-06] MEDS: HEPARIN SOD (PORCINE) 5000 UNITS/ML VIAL SQ SCH ×2 (09:51→20:02)
--- NOTE | 2016-10-06 09:51 | REP ---
CT ABDOMEN AND PELVIS WITH ORAL AND IV CONTRAST: TECHNIQUE: Axial contrast enhanced images from the lung bases to the pubic symphysis using 100 mL Isovue 370 intravenous contrast material with multiplanar reformations. In the visualized lung bases, there are infiltrates. There is a small right pleural effusion. The liver, spleen, adrenals, pancreas and right kidney are unremarkable. Small cysts are seen of the left kidney. There is no hydronephrosis. Patient has had a cholecystectomy. There is no biliary dilatation. There are atherosclerotic calcifications of the abdominal aorta without aneurysm. There is no adenopathy. There is no free air or free fluid. There is no bowel thickening. There is extensive sigmoid diverticulosis. There is no pelvic mass. [place] catheter is seen in the urinary bladder which contains a small amount of air and fluid. Prostate appears prominent in size. There are degenerative changes of the spine and hips. IMPRESSION: Bilateral lower lobe infiltrates. Small right effusion. [place] catheter in the urinary bladder. Prominent size of the prostate. Sigmoid diverticulosis. Small left renal cysts. No free air or free fluid. No adenopathy. Signed by Chuck Christensen MD 10/06/2016 03:53 P
[2016-10-06] MEDS ORDERED: SLF 3 ML SYR IV PRN (13:00)
[2016-10-06] MEDS ORDERED: SODIUM CHLORIDE 0.9% INJ 10 ML SYR IV PRN (13:00)
[2016-10-06] MEDS: IPRATROPIUM 0.5MG/ALBUTEROL 2.5MG INH SOL UD 3ML (DUONEB)(J7620) NEB PRN ×2 (13:22→20:09)
[2016-10-06] MEDS ORDERED: SLF 3 ML SYR IV SCH (14:00)
[2016-10-06] MEDS: SODIUM CHLORIDE 0.9% INJ 10 ML SYR IV SCH ×2 (14:00→21:00)
--- NOTE | 2016-10-06 15:18 | IPN ---
DATE: 10/06/2016 The patient is seen and examined. Reported improvement. Reported cough productive of brown sputum. Denies any fever or chills. Continues to report dyspnea but much better. Currently off pressors. VITAL SIGNS: Temperature 98.8, pulse 96, respirations 18, blood pressure 108/58, pulse oximetry 97% on room air. LABORATORY DATA: WBC 16.7, hemoglobin and hematocrit 11.1/33.8, platelets 138. Chemistry: Sodium 139, potassium 3.8, chloride 111, bicarbonate 20, BUN 14, creatinine 1.11. Last lactic acid 1.9. C-reactive protein 23.1. PHYSICAL EXAMINATION: GENERAL: The patient is comfortable and in no acute distress. HEENT: Normocephalic, atraumatic. NECK: Supple. PULMONARY: Bilateral rhonchi. CARDIAC: Regular rate and rhythm. Normal S1, S2. ABDOMEN: Soft, nontender, nondistended EXTREMITIES: No edema in bilateral lower extremities. ASSESSMENT AND PLAN: This is an 86-year-old male patient with underlying medical history of syncope, orthostatic hypotension, bradycardia, status post pacemaker, gastroesophageal reflux disease (GERD), non insulin-dependent diabetes mellitus, iron deficiency anemia, chronic obstructive pulmonary disease (COPD), emphysema Gold stage 1, hypertension, GERD, degenerative joint disease, dyslipidemia, benign prostatic hypertrophy (BPH), diverticulosis, who presented with nausea, vomiting, shortness of breath, diarrheal and cough, admitted for severe sepsis secondary to pneumonia. 1. Septic shock secondary to bilateral lower lobe pneumonia. Oxygen supplementation. Followup C-reactive protein. Followup WBC. Respiratory panel negative. Followup cultures. Initially on Levaquin. Currently on vancomycin and Zosyn. Initially on Levophed, currently off pressors. IV fluids given. Central venous pressure appreciated. Currently transfer to progressive care unit (PCU) given the patient is hemodynamically stable. 2. Hypoxia, likely secondary to sepsis and pneumonia. Continue oxygen supplementation. EZ-PAP oxygen supplementation, treatment for pneumonia, as above. 3. Nausea, vomiting, diarrhea. Unclear etiology. Possibly related to underlying infection. CT scan of the abdomen and pelvis from [place] shows no acute findings. GI panel if diarrhea persists. IV fluids initially provided. Currently off IV fluids. Currently tolerating diet. Aspiration precautions. 4. Pelvic lesions on CT scan of the abdomen and pelvis in [place]. Repeat CT scan does not show lesions. 5. Near syncope, likely secondary to septic shock and hypotension. Physical therapy (PT) evaluation. Fall precautions. 6. Confusion, likely encephalopathic secondary to septic shock. Supportive care. Treatment for sepsis as above. 7. Dark stool diarrhea. Rule out GI bleed. Fecal occult. Hemoglobin and hematocrit have been stable. Continue to monitor. 8. QTC prolongation. EKG and monitor telemetry. Repeat EKG shows normal QTC. 9. CT scan of the right lower lobe nodules. Outpatient followup for repeat CT scan. CT scan of the abdomen does not show hemipelvic nodules. We will continue to follow. Outpatient followup. 10. History of syncope. Continue to monitor. Physical therapy (PT). Orthostatic vital signs. 11. History of bradycardia. The patient has a pacemaker. 12. Gastroesophageal reflux disease (GERD). Continue proton pump inhibitor. 13. Rna-gzvhxyp-pytccdfof diabetes. Holding metformin. Insulin as per protocol. 14. Iron deficiency anemia. Followup hemoglobin and hematocrit. Anemia workup as ordered. 15. COPD. Appreciate pulmonology assistance. The patient currently does not have significant wheeze. Nebulizer treatment. EZ-PAP, Pulmicort, Spiriva, supportive care. 16. Hypertension. Continue Diltiazem. Monitor blood pressure. 17. Degenerative joint disease. Supportive care. Medications as ordered. 18. Dyslipidemia. Continue statin. 19. Benign prostatic hypertrophy (BPH). Continue Flomax. 20. Diverticulosis. Continue to monitor. 21. Deep vein thrombosis (DVT) prophylaxis. We will start the patient on heparin subcutaneously given stable hemoglobin and hematocrit. DISPOSITION: The patient's condition is slightly improved. We will transfer the patient to progressive care unit (PCU).
[2016-10-06] MEDS: PRAVASTATIN 20 MG TAB PO SCH (20:01)
[2016-10-07] VITALS (7 sets, daily range): BP systolic 115–144; BP diastolic 61–85
[2016-10-07] MEDS: VANCOMYCIN HCL 1,000 MG, VIAL MATE ADAPTER 1 EACH in D5W 250 ML IV SCH (00:47)
--- NOTE | 2016-10-07 02:01 | PHACANCOPD ---
PHARMACY VANCOMYCIN DOSING Pt Demographics Demographics Patient Age:86 , Weight:82.500 , Gender: male Adjusted Body Weight Date: 10/05/16, Adjusted Body Weight: [78.2] Kg Vancomycin Vancomycin Target Ranges: 15-20 mcg/ml Vancomycin Load Y/N: Yes Load Dose Date Time Vancomycin Load Dose: 1500MG Date: 10-05 Time: 0200 Vancomycin Dose Date: 10/05/16. Current Vancomycin Dose: [1000MG Q24H] Intermittent Dosing?: No Labs Micro Microbiology 10/04/16 Blood Culture - Preliminary, Resulted No Growth after 48 hours. All Specime... 10/04/16 Blood Culture - Preliminary, Resulted No Growth after 48 hours. All Specime... 10/06/16 Gram Stain - Final, Resulted 10/06/16 Sputum Culture, Resulted Pending 10/04/16 Respiratory Virus Panel (PCR) (LU) - Final, Complete 10/05/16 Urine Culture - Final, Complete 10/04/16 Urine Culture - Final, Complete Creatinine Clearance Date:10/07/16. Creatinine Clearance: [53.8]CALCULATED. Date:10/05/16. Creatinine Clearance: [34]. Pending Labs Trough 10-07 =7.2 Assessment and Plan Maintaining Current Dose?: Yes Reason for dose change: Other Pharmacist Note Pharmacist Note Date: 10/07/16. Pharmacist note:10/07 12MIDNIGHT TROUGH REPORTED 7.2-Will reschedule Q24 hour dosing to 12 noon daily(12 hours early)-hopefully this will bump up the trough into therapeutic range. Date: 10/05/16. Pharmacist note:Dosed at 1000mg q24h with a trough ordered for @0000. Will continue to monitor and make adjustments as needed. HELEN DAN PHARMACY Oct 07, 2016 02:00
[2016-10-07] MEDS: PIPERACILLIN/TAZOBACTAM SOD 3.375 GM in D5W MINI-BAG PLUS 50 ML IV SCH ×2 (02:03→07:52)
[2016-10-07] MEDS: SODIUM CHLORIDE 0.9% INJ 10 ML SYR IV SCH ×3 (05:07→20:50)
[2016-10-07 05:55] LABS: BASO % 0.4 % (0.0-1.0); EOS # 0.1 K/mm3 (0.0-0.50); EOS % 1.1 % (0.0-3.0); LARGE UNSTAINED CELL # 0.1 K/mm3 (0.0-0.4); LARGE UNSTAINED CELL % 1.5 % (0.0-4.0); LYMPH # 1.5 K/mm3 (1.5-4.5); MEAN CORPUSCULAR HEMOGLOBIN 30.9 pg (27.0-33.0); MEAN CORPUSCULAR HGB CONC 33.2 g/dl (32.0-36.5); MONO # 0.4 K/mm3 (0.0-0.8); MONO % 4.3 % (0.0-5.0); NEUTROPHILS # 6.7 K/mm3 (1.8-7.7); NEUTROPHILS % 76.7 % (36.0-66.0); PLATELET COUNT, AUTOMATED 134 k/mm3 (150-450); WHITE BLOOD COUNT 8.8 K/mm3 (4.0-10.0)
[2016-10-07 06:12] LABS: ANION GAP 7 MEQ/L (8-16); BLOOD UREA NITROGEN 10 MG/DL (7-18); CALCIUM LEVEL 8.2 MG/DL (8.8-10.2); CARBON DIOXIDE LEVEL 23 MEQ/L (21-32); CHLORIDE LEVEL 110 MEQ/L (98-107); CREATININE FOR GFR 0.91 MG/DL (0.70-1.30); GLOMERULAR FILTRATION RATE > 60.0 (>35); GLUCOSE, FASTING 123 MG/DL (83-110); POTASSIUM SERUM 3.6 MEQ/L (3.5-5.1); SODIUM LEVEL 140 MEQ/L (136-145)
[2016-10-07] MEDS: SUCRALFATE SUSP 1GM/10ML UD PO SCH ×3 (07:47→17:28)
[2016-10-07] MEDS: HumaLOG INSULIN (NovoLOG) PER UNIT SC SCH ×4 (07:52→21:00)
[2016-10-07] MEDS: TIOTROPIUM INHALER/CAPSULE (SPIRIVA) INH SCH (08:00)
[2016-10-07] MEDS: BUDESONIDE 180MCG INHALER (PULMICORT FLEXHALER) INH SCH ×2 (08:00→19:50)
[2016-10-07] MEDS: PANTOPRAZOLE 40MG INJ (PROTONIX) (C9113) IV SCH ×2 (09:25→20:49)
[2016-10-07] MEDS: MULTIVITAMINS/MINERALS THERAP 1 TAB PO SCH (09:26)
[2016-10-07] MEDS: TAMSULOSIN 0.4 MG CAP PO SCH (09:26)
[2016-10-07] MEDS: LACTOBACILLUS ACIDOPHILUS CAP (BACID) PO SCH ×2 (09:26→20:49)
[2016-10-07] MEDS: HEPARIN SOD (PORCINE) 5000 UNITS/ML VIAL SQ SCH ×2 (09:26→20:49)
[2016-10-07] MEDS: SODIUM CHLORIDE NASAL 0.65% SPRAY BTL (OCEAN) SCH ×2 (09:26→20:49)
--- NOTE | 2016-10-07 10:22 | IPNPDOC ---
Date Seen The patient was seen on 10/07/16. Progress Note SUBJECTIVE: Patient tells me that he is feeling tired but otherwise she denies any complaints. He tells me that his cough is improving he is coughing up sputum but is coughing less often than he was in previous days. He denies chest pain shortness of breath fevers chills nausea vomiting. OBJECTIVE PHYSICAL EXAMINATION: VITAL SIGNS: Please see below. GENERAL: Frail elderly man sitting up in bed watching television he does not appear to be in any acute distress HEENT: Patient has moist mucous membranes bitemporal wasting no elevation and CVP is central venous catheter on his left neck CARDIOVASCULAR: 1 S2 regular. He does not appear tachycardic, exam. RESPIRATORY: Was breath sounds at the bases but otherwise fairly clear with good air movement. ABDOMINAL: Obese bowel sounds are present abdomen soft EXTREMITIES:no Clubbing cyanosis or edema LABORATORY DATA: Please see below. MICROBIOLOGY: Please see below. IMAGING: CT Abd pelvis: Bilateral lower lobe infiltrates. Small right effusion. [place] catheter in the urinary bladder. Prominent size of the prostate. Sigmoid diverticulosis. Small left renal cysts. No free air or free fluid. No adenopathy. CT Chest: Bilateral lower lobe pneumonias, worse on the left. Mild scarring in the right upper lobe, which is stable since 2015. DVT prophylaxis ordered?: Heparin every 12 ASSESSMENT AND PLAN: This is a 86-year-old man with septic shock secondary to community acquired pneumonia. PROBLEMS: 1. Septic shock secondary to left lower lobe pneumonia: Radha's help is greatly appreciated at this time the patient disseminated be stable he is no longer requiring levo fed. At this time we'll narrow antibiotic spectrum back to Levaquin we'll discontinue his [place] catheter feels though he is medically stable for transfer the medical surgical floor. Clinically he appears to be much improved at this time. He'll need follow-up with Dr. Garcia in 3-4 weeks. The patient was started on easy Pap with supplemental oxygen we will wean as tolerated. Nausea and vomiting likely related to pneumonia and severe sepsis at the time of presentation. The patient also had near syncopal episode when he was severely elevated time of presentation PT evaluation is been ordered. 2. A pelvic lesion: Was reported on the CT scan of the abdomen pelvis and [place] repeat CT scan does not show any lesion recommend follow-up with his outpatient primary care provider. 3. Metabolic encephalopathy: Secondary to severe sepsis the patient does appear to be improving at this time we'll continue to monitor his mental status I suspect will clear as his hemodynamics improved and we are making headway and his infection. 4. QT prolongation: Repeat EKGs have not shown QT prolongation 5. Right lower lobe nodules: Follow-up with Dr. Garcia in 3-4 weeks will likely require further outpatient imaging 6. History of bradycardia arrhythmia: The patient is status post pacemaker placement. 7. Gastroesophageal reflux disease: Continue PPI and Carafate 8. Type 2 diabetes: Patient is on insulin sliding scale 9. COPD on resistance appreciated patient on easy Pap Pulmicort Spiriva nebulizer treatments continue to monitor 10. Hypertension: Continue with diltiazem blood pressure is adequate he is hemodynamically stable 11. Dyslipidemia: Continue with statin therapy 12. BPH: Continue Flomax 13. Diarrhea: GI PCR panel has been ordered may be related to antibiotic use patient is on Bacid 14. Iron deficiency anemia: Patient was started on iron sulfate after his acute infection is resolved. DISPOSITION: Transfer the medical surgical floor continue to work with physical therapy the patient is approaching dispositioning. VS, I&O, 24H, [facility] Vital Signs/I&O Vital Signs Date Time Temp Pulse Resp B/P Pulse Ox O2 Delivery O2 Flow Rate FiO2 10/07/16 08:02 96 10/07/16 08:00 99.6 22 115/73 92 Room Air 10/05/16 08:00 2.0 I&O- Last 24 Hours up to 6 AM 10/07/16 06:00 Intake Total 2730 ml Output Total 3675 ml Balance -945 ml Laboratory Data 24H LABS Laboratory Tests 2 10/06/16 11:39: Bedside Glucose (Misc Panel) 147H 10/06/16 16:56: Bedside Glucose (Misc Panel) 159H 10/06/16 21:33: Bedside Glucose (Misc Panel) 197H 10/06/16 23:51: Vancomycin Level Trough 7.2L 10/07/16 05:28: Anion Gap 7L, White Blood Count 8.8, Red Blood Count 3.60L, Hemoglobin 11.1L, Hematocrit 33.5L, Mean Corpuscular Volume 93.0, Mean Corpuscular Hemoglobin 30.9 , Mean Corpuscular Hemoglobin Concent 33.2, Red Cell Distribution Width 14.0, Platelet Count 134L, Neutrophils (%) (Auto) 76.7H, Lymphocytes (%) (Auto) 16.0L , Monocytes (%) (Auto) 4.3, Eosinophils (%) (Auto) 1.1, Basophils (%) (Auto) 0.4 , Neutrophils # (Auto) 6.7, Lymphocytes # (Auto) 1.5, Monocytes # (Auto) 0.4, Eosinophils # (Auto) 0.1, Basophils # (Auto) 0.0, C-Reactive Protein, Quantitative 23.60H, Blood Urea Nitrogen 10, Creatinine 0.91, Sodium Level 140, Potassium Level 3.6, Chloride Level 110H, Carbon Dioxide Level 23, Calcium Level 8.2L, Glomerular Filtration Rate > 60.0, Large Unclassified Cells # 0.1, Large Unclassified Cells % 1.5, Magnesium Level 2.2 CBC/BMP Laboratory Tests 10/07/16 05:28 Calcium Level 8.2 L, Red Blood Count 3.60 L, Mean Corpuscular Volume 93.0, Mean Corpuscular Hemoglobin 30.9, Mean Corpuscular Hemoglobin Concent 33.2, Red Cell Distribution Width 14.0, Neutrophils (%) (Auto) 76.7 H, Lymphocytes (%) (Auto) 16.0 L, Monocytes (%) (Auto) 4.3, Eosinophils (%) (Auto) 1.1, Basophils (%) ( Auto) 0.4, Neutrophils # (Auto) 6.7, Lymphocytes # (Auto) 1.5, Monocytes # (Auto ) 0.4, Eosinophils # (Auto) 0.1, Basophils # (Auto) 0.0 Microbiology Microbiology 10/04/16 Blood Culture - Preliminary, Resulted No Growth after 48 hours. All Specime... 10/04/16 Blood Culture - Preliminary, Resulted No Growth after 48 hours. All Specime... 10/07/16 Stool Occult Blood (LU) - Final, Complete 10/07/16 Gastrointestinal Tract Panel (PCR), Received Pending 10/06/16 Gram Stain - Final, Resulted 10/06/16 Sputum Culture, Resulted Pending 10/04/16 Respiratory Virus Panel (PCR) (LU) - Final, Complete 10/05/16 Urine Culture - Final, Complete 10/04/16 Urine Culture - Final, Complete RADHA OH MD Oct 07, 2016 10:22
[2016-10-07] MEDS ORDERED: VANCOMYCIN HCL 1,000 MG, VIAL MATE ADAPTER 1 EACH in D5W 250 ML IV SCH (12:00)
[2016-10-07] MEDS: LevoFLOXacin 500 MG TABLET PO SCH (12:40)
[2016-10-07] MEDS: PRAVASTATIN 20 MG TAB PO SCH (20:49)
[2016-10-08] MEDS: LevoFLOXacin 500 MG TABLET PO SCH (05:16)
[2016-10-08] MEDS: SODIUM CHLORIDE 0.9% INJ 10 ML SYR IV SCH (05:16)
[2016-10-08 06:00] VITALS: BP 131/84
[2016-10-08 07:13] LABS: BASO % 0.6 % (0.0-1.0); EOS # 0.2 K/mm3 (0.0-0.50); EOS % 2.5 % (0.0-3.0); LARGE UNSTAINED CELL # 0.2 K/mm3 (0.0-0.4); LARGE UNSTAINED CELL % 2.8 % (0.0-4.0); LYMPH # 1.9 K/mm3 (1.5-4.5); LYMPH % 25.9 % (24.0-44.0); MEAN CORPUSCULAR HEMOGLOBIN 31.4 pg (27.0-33.0); MEAN CORPUSCULAR HGB CONC 33.7 g/dl (32.0-36.5); MEAN CORPUSCULAR VOLUME 93.1 fl (80.0-96.0); MONO # 0.5 K/mm3 (0.0-0.8); MONO % 6.8 % (0.0-5.0); NEUTROPHILS # 4.1 K/mm3 (1.8-7.7); NEUTROPHILS % 61.3 % (36.0-66.0); PLATELET COUNT, AUTOMATED 163 k/mm3 (150-450); RED CELL DISTRIBUTION WIDTH 13.7 % (11.5-14.5); WHITE BLOOD COUNT 6.6 K/mm3 (4.0-10.0)
[2016-10-08] MEDS: TIOTROPIUM INHALER/CAPSULE (SPIRIVA) INH SCH (07:16)
[2016-10-08] MEDS: BUDESONIDE 180MCG INHALER (PULMICORT FLEXHALER) INH SCH ×2 (07:16→19:55)
[2016-10-08 07:38] LABS: ANION GAP 9 MEQ/L (8-16); BLOOD UREA NITROGEN 9 MG/DL (7-18); CALCIUM LEVEL 8.4 MG/DL (8.8-10.2); CARBON DIOXIDE LEVEL 22 MEQ/L (21-32); CHLORIDE LEVEL 108 MEQ/L (98-107); CREATININE FOR GFR 0.94 MG/DL (0.70-1.30); GLOMERULAR FILTRATION RATE > 60.0 (>35); GLUCOSE, FASTING 113 MG/DL (83-110); POTASSIUM SERUM 3.7 MEQ/L (3.5-5.1); SODIUM LEVEL 139 MEQ/L (136-145)
[2016-10-08] MEDS: HumaLOG INSULIN (NovoLOG) PER UNIT SC SCH ×4 (07:45→20:50)
[2016-10-08] MEDS: SUCRALFATE SUSP 1GM/10ML UD PO SCH ×3 (07:45→17:09)
[2016-10-08] MEDS ORDERED: ONDANSETRON 4 MG ORAL DISINTEGRATING TAB (S0181) PO PRN (09:00)
[2016-10-08] MEDS: SODIUM CHLORIDE NASAL 0.65% SPRAY BTL (OCEAN) SCH ×2 (09:21→20:27)
[2016-10-08] MEDS: MULTIVITAMINS/MINERALS THERAP 1 TAB PO SCH (09:21)
[2016-10-08] MEDS: HEPARIN SOD (PORCINE) 5000 UNITS/ML VIAL SQ SCH ×2 (09:21→20:27)
[2016-10-08] MEDS: TAMSULOSIN 0.4 MG CAP PO SCH (09:21)
[2016-10-08] MEDS: LACTOBACILLUS ACIDOPHILUS CAP (BACID) PO SCH ×2 (09:21→20:27)
[2016-10-08] MEDS: PANTOPRAZOLE 40MG INJ (PROTONIX) (C9113) IV SCH ×2 (09:21→20:27)
--- NOTE | 2016-10-08 10:24 | IPNPDOC ---
Date Seen The patient was seen on 10/08/16. Progress Note SUBJECTIVE: Patient tells me that he feels much better than previous days. He tells me that his cough is improving. He denies chest pain shortness of breath fevers chills nausea vomiting. OBJECTIVE PHYSICAL EXAMINATION: VITAL SIGNS: Please see below. GENERAL: Frail elderly man sitting up in bed watching television he does not appear to be in any acute distress HEENT: Patient has moist mucous membranes bitemporal wasting no elevation and CVP is central venous catheter on his left neck CARDIOVASCULAR: s1 S2 irregular. He does not appear tachycardic on exam. RESPIRATORY: Diminished breath sounds at the bases but otherwise fairly clear with good air movement. ABDOMINAL: Obese bowel sounds are present abdomen soft EXTREMITIES:no cyanosis or edema LABORATORY DATA: Please see below. MICROBIOLOGY: Please see below. IMAGING: CT Abd pelvis: Bilateral lower lobe infiltrates. Small right effusion. [place] catheter in the urinary bladder. Prominent size of the prostate. Sigmoid diverticulosis. Small left renal cysts. No free air or free fluid. No adenopathy. CT Chest: Bilateral lower lobe pneumonias, worse on the left. Mild scarring in the right upper lobe, which is stable since 2015. DVT prophylaxis ordered?: Heparin every 12 ASSESSMENT AND PLAN: This is a 86-year-old man with septic shock secondary to community acquired pneumonia. PROBLEMS: 1. Septic shock secondary to left lower lobe pneumonia: Dr. Garcia's help is greatly appreciated at this time the patient appears to be stable he is no longer requiring levo fed. Clinically he appears to be much improved at this time. He'll need follow-up with Dr. Garcia in 3-4 weeks. The patient was started on e z Pap with supplemental oxygen we will wean as tolerated at the present time he is comfortable on room air. Nausea and vomiting likely related to pneumonia and severe sepsis at the time of presentation now resolved. The patient also had near syncopal episode when he was severely septic at time of presentation, PT evaluation is been ordered. 2. A pelvic lesion: Was reported on the CT scan of the abdomen pelvis and [place] repeat CT scan does not show any lesion recommend follow-up with his outpatient primary care provider. 3. Metabolic encephalopathy: Secondary to severe sepsis the patient does appear to be improving at this time we'll continue to monitor his mental status I suspect will clear as his hemodynamics improved and we are making headway and his infection. 4. QT prolongation: Repeat EKGs have not shown QT prolongation 5. Right lower lobe nodules: Follow-up with Dr. Garcia in 3-4 weeks will likely require further outpatient imaging 6. History of bradycardia arrhythmia and SVT: The patient is status post pacemaker placement. At the present time he appears to be in atrial fibrillation I will restart his home diltiazem he has a pacemaker in place at would not start anticoagulation given his propensity for falls I will check a TSH he has had echocardiograms in the past will require follow-up with his PCP and groover and turner Dr. Hillman 7. Gastroesophageal reflux disease: Continue PPI and Carafate 8. Type 2 diabetes: Patient is on insulin sliding scale 9. COPD pulmonary help appreciated patient on easy Pap Pulmicort Spiriva nebulizer treatments continue to monitor 10. Hypertension: Continue with diltiazem blood pressure is adequate he is hemodynamically stable 11. Dyslipidemia: Continue with statin therapy 12. BPH: Continue Flomax 13. Diarrhea: GI PCR panel has been ordered may be related to antibiotic use patient is on Bacid 14. Iron deficiency anemia: Patient was started on iron sulfate after his acute infection is resolved. DISPOSITION: Transfer the medical surgical floor continue to work with physical therapy the patient is approaching discharge VS, I&O, 24H, [place] Vital Signs/I&O Vital Signs Date Time Temp Pulse Resp B/P Pulse Ox O2 Delivery O2 Flow Rate FiO2 10/08/16 06:00 97.4 101 20 131/84 93 Room Air 10/05/16 08:00 2.0 I&O- Last 24 Hours up to 6 AM 10/08/16 06:00 Intake Total 2240 ml Output Total 3400 ml Balance -1160 ml Laboratory Data 24H LABS Laboratory Tests 2 10/07/16 11:47: Bedside Glucose (Misc Panel) 106 10/07/16 16:56: Bedside Glucose (Misc Panel) 147H 10/07/16 21:19: Bedside Glucose (Misc Panel) 136H 10/08/16 06:42: White Blood Count 6.6, Red Blood Count 3.74L, Hemoglobin 11.8L, Hematocrit 34.9L , Mean Corpuscular Volume 93.1, Mean Corpuscular Hemoglobin 31.4, Mean Corpuscular Hemoglobin Concent 33.7, Red Cell Distribution Width 13.7, Platelet Count 163, Neutrophils (%) (Auto) 61.3, Lymphocytes (%) (Auto) 25.9, Monocytes ( %) (Auto) 6.8H, Eosinophils (%) (Auto) 2.5, Basophils (%) (Auto) 0.6, Neutrophils # (Auto) 4.1, Lymphocytes # (Auto) 1.9, Monocytes # (Auto) 0.5, Eosinophils # (Auto) 0.2, Basophils # (Auto) 0.0, Large Unclassified Cells # 0.2 , Large Unclassified Cells % 2.8 10/08/16 06:43: Anion Gap 9, Blood Urea Nitrogen 9, Creatinine 0.94, Sodium Level 139, Potassium Level 3.7, Chloride Level 108H, Carbon Dioxide Level 22, Calcium Level 8.4L, Glomerular Filtration Rate > 60.0, Magnesium Level 2.0 CBC/BMP Laboratory Tests 10/08/16 06:42 Red Blood Count 3.74 L, Mean Corpuscular Volume 93.1, Mean Corpuscular Hemoglobin 31.4, Mean Corpuscular Hemoglobin Concent 33.7, Red Cell Distribution Width 13.7, Neutrophils (%) (Auto) 61.3, Lymphocytes (%) (Auto) 25.9, Monocytes (%) (Auto) 6.8 H, Eosinophils (%) (Auto) 2.5, Basophils (%) ( Auto) 0.6, Neutrophils # (Auto) 4.1, Lymphocytes # (Auto) 1.9, Monocytes # (Auto ) 0.5, Eosinophils # (Auto) 0.2, Basophils # (Auto) 0.0 10/08/16 06:43 Calcium Level 8.4 L Microbiology Microbiology 10/04/16 Blood Culture - Preliminary, Resulted No Growth after 72 hours. All specime... 10/04/16 Blood Culture - Preliminary, Resulted No Growth after 72 hours. All specime... 10/07/16 Stool Occult Blood (LU) - Final, Complete 10/07/16 Gastrointestinal Tract Panel (PCR) - Final, Complete 10/06/16 Gram Stain - Final, Complete 10/06/16 Sputum Culture - Final, Complete 10/04/16 Respiratory Virus Panel (PCR) (LU) - Final, Complete 10/05/16 Urine Culture - Final, Complete 4/1/17 Urine Culture - Final, Complete [place],NAZEEL MD Oct 08, 2016 10:24
--- NOTE | 2016-10-08 10:34 | IPN ---
DICTATION MADE IN ERROR PLEASE DISREGARD MTDD
[2016-10-08 14:00] VITALS: BP 102/69
[2016-10-08] MEDS: PRAVASTATIN 20 MG TAB PO SCH (20:27)
[2016-10-08 22:00] VITALS: BP 126/70
--- NOTE | 2016-10-08 22:15 | ECGEPIP ---
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 ABNORMAL RHYTHM ECG Electronically Signed On 10-08-2016 22:15:23 EDT by Carroll Bryan
[2016-10-09] MEDS: LevoFLOXacin 500 MG TABLET PO SCH (05:18)
[2016-10-09 06:00] VITALS: BP 127/65
[2016-10-09 06:43] LABS: BASO % 0.8 % (0.0-1.0); EOS # 0.1 K/mm3 (0.0-0.50); EOS % 2.3 % (0.0-3.0); LARGE UNSTAINED CELL # 0.2 K/mm3 (0.0-0.4); LARGE UNSTAINED CELL % 3.7 % (0.0-4.0); LYMPH # 2.1 K/mm3 (1.5-4.5); LYMPH % 31.1 % (24.0-44.0); MEAN CORPUSCULAR HEMOGLOBIN 31.3 pg (27.0-33.0); MEAN CORPUSCULAR HGB CONC 33.6 g/dl (32.0-36.5); MEAN CORPUSCULAR VOLUME 93.3 fl (80.0-96.0); MONO # 0.5 K/mm3 (0.0-0.8); NEUTROPHILS # 3.2 K/mm3 (1.8-7.7); PLATELET COUNT, AUTOMATED 175 k/mm3 (150-450); RED CELL DISTRIBUTION WIDTH 13.7 % (11.5-14.5); WHITE BLOOD COUNT 5.9 K/mm3 (4.0-10.0)
[2016-10-09 07:02] LABS: ANION GAP 9 MEQ/L (8-16); BLOOD UREA NITROGEN 9 MG/DL (7-18); CALCIUM LEVEL 8.6 MG/DL (8.8-10.2); CARBON DIOXIDE LEVEL 22 MEQ/L (21-32); CHLORIDE LEVEL 107 MEQ/L (98-107); CREATININE FOR GFR 1.06 MG/DL (0.70-1.30); GLOMERULAR FILTRATION RATE > 60.0 (>35); GLUCOSE, FASTING 119 MG/DL (83-110); MAGNESIUM LEVEL 2.1 MG/DL (1.8-2.4); POTASSIUM SERUM 3.8 MEQ/L (3.5-5.1); SODIUM LEVEL 138 MEQ/L (136-145)
[2016-10-09] MEDS: TIOTROPIUM INHALER/CAPSULE (SPIRIVA) INH SCH (07:44)
[2016-10-09] MEDS: BUDESONIDE 180MCG INHALER (PULMICORT FLEXHALER) INH SCH (07:44)
[2016-10-09 09:00] VITALS: BP 100/59
[2016-10-09] MEDS: SUCRALFATE SUSP 1GM/10ML UD PO SCH ×3 (09:28→17:03)
[2016-10-09] MEDS: HEPARIN SOD (PORCINE) 5000 UNITS/ML VIAL SQ SCH (09:28)
[2016-10-09] MEDS: TAMSULOSIN 0.4 MG CAP PO SCH (09:28)
[2016-10-09] MEDS: MULTIVITAMINS/MINERALS THERAP 1 TAB PO SCH (09:28)
[2016-10-09] MEDS: PANTOPRAZOLE 40MG INJ (PROTONIX) (C9113) IV SCH (09:28)
[2016-10-09] MEDS: LACTOBACILLUS ACIDOPHILUS CAP (BACID) PO SCH (09:28)
[2016-10-09] MEDS: HumaLOG INSULIN (NovoLOG) PER UNIT SC SCH ×3 (09:29→17:01)
[2016-10-09] MEDS: SODIUM CHLORIDE NASAL 0.65% SPRAY BTL (OCEAN) SCH (09:31)
[2016-10-09] MEDS ORDERED: LEVA500T PO (09:55)
[2016-10-09] MEDS ORDERED: FERR325T3 PO (09:57)
--- NOTE | 2016-10-09 12:34 | DSES ---
DATE OF ADMISSION: 10/04/2016 DATE OF DISCHARGE: DISCHARGE DIAGNOSIS: Septic shock secondary to left lower lobe pneumonia. SECONDARY DIAGNOSES: 1. Metabolic encephalopathy. 2. Bradyarrhythmia status post pacemaker. 3. Right lower lobe nodule. 4. Gastroesophageal reflux disease (GERD). 5. Type 2 diabetes. 6. Chronic obstructive pulmonary disease (COPD). 7. Hypertension. 8. Dyslipidemia. 9. Benign prostatic hypertrophy (BPH). 10. Iron deficiency anemia. HOSPITALIZATION COURSE: The patient is an 86-year-old man who presented on 10/04/2016. At that time, he presented with cough, fevers, chills. There was concern for pneumonia. The patient was actually admitted to the medical intensive care unit (ICU). He was initially hypotensive and required triple lumen catheter placement. He was started on empiric Zosyn and vancomycin, as well as Levophed and received IV fluids. The patient gradually did respond. His lactic acid was reduced. He was actually weaned from pressors. His leukocytosis resolved. He became hemodynamically stable. He was transferred out of the medical intensive care unit to the general medicine floor where he continued to improve. The patient was cleared by physical therapy (PT). Inflammatory markers were down trending. During his stay he was found to have some mild iron deficiency anemia. He was also found to have an irregular heart rhythm on EKG, read by Dr. Bryan to be Wenckebach type 1. The patient has a history of heart block and status post a pacemaker placement. At this time, the patient reports that he feels well. He is eager to go home. He tells me that his girlfriend is able to care for him 24/ at home. He has no stairs to climb. He has no chest pain, shortness of breath, fevers, chills, nausea, vomiting, or diarrhea. OBJECTIVE: VITAL SIGNS: Temperature 98.4, pulse 74, respiratory rate 16, blood pressure 127/65, oxygen saturation 90% on room air. GENERAL: He is a frail, elderly, man sitting up in bed and watching television. He is in no acute distress. HEENT: Cranial nerves II through XII are grossly intact. He has moist mucous membranes. No elevation of central venous pressure. CARDIOVASCULAR EXAM: S1, S2. Irregular. RESPIRATORY EXAM: Clear. ABDOMINAL EXAM: Benign, obese. EXTREMITIES: No clubbing, cyanosis, or appreciable edema. LABORATORY STUDIES: WBC 5.9, hemoglobin 11.9, hematocrit 35.4, platelet count 175. Chemistry panel: Sodium 138, potassium 3.9, chloride 107, bicarbonate 22, BUN 9, creatinine 1.0. Microbiology: Occult stool for blood was negative. GI PCR panel was negative. Blood cultures have all been negative. Urine cultures have been negative. Respiratory panel is negative. IMAGING: The patient did have a CT scan of the chest on 10/04/2016 that revealed bilateral lower lobe pneumonia that is worse on the left and mild scarring on the right upper lobe. CT of the abdomen and pelvis revealed once again bilateral lower lobe infiltrates. ASSESSMENT AND PLAN: This is an 86-year-old man with resolved septic shock secondary to community acquired pneumonia. 1. Septic shock secondary to community acquired pneumonia and left lower lobe pneumonia. Dr. Garcia' help is greatly appreciated. The patient is stable. He is back to his baseline functional status. He has been cleared by physical therapy (PT). He has been restarted on his home medications. He is to followup with Dr. Garcia in 3 to 4 weeks. He has been on EZ-PAP. He is no longer requiring any supplemental oxygen. He is comfortable on room air. 2. Pelvic lesions. There was reportedly a lesion on the CT scan of the abdomen and pelvis at [place]. Repeat scan here at our hospital has not revealed any lesions. 3. Metabolic encephalopathy, resolved, secondary to severe sepsis. 4. QT prolongation, not prolonged on repeat EKG. 5. Right lower lobe nodule. Followup with Dr. Garcia in 3 to 4 weeks. May require further outpatient imaging. 6. History of heart block. The patient has a history with a permanent pacemaker placement. He had an EKG with irregular heartbeat, likely Wenckebach type 1. He is on diltiazem. He is on pacer. It does not appear to be atrial fibrillation. Followup with his primary care provider and transition program manager, Dr. Hillman. TSH within normal limits. He has had numerous EKGs in the past. 7. Gastroesophageal reflux disease (GERD). The patient is on proton pump inhibitor and Carafate. 8. Type 2 diabetes. He is on sliding scale insulin. 9. Chronic obstructive pulmonary disease (COPD). He has been on EZ-PAP, Pulmicort, Spiriva, and nebulizer treatments. 10. Hypertension. He is on diltiazem. His blood pressure is stable. 11. Dyslipidemia. He is on a statin. 12. Benign prostatic hypertrophy (BPH). He is on Flomax. 13. Iron deficiency anemia. He has been started on iron supplementation. DISPOSITION: The patient is being discharged home to the care of his girlfriend. His diet is as prior to admission. His activity is as prior to admission. He is to followup with his primary care provider in [address] Garcia in 3 to 4 weeks. He has been advised to return to the emergency room if his symptoms worsen. MEDICATIONS: At the time of discharge: - ferrous sulfate 325 mg daily - Levofloxacin 500 mg daily for 3 more days - ProAir HFA one puff every four hours as needed for shortness of breath - DuoNeb every 4 hours as needed for wheezing - diltiazem 120 mg daily - Breo Ellipta 100/25 one puff daily - gabapentin 200 mg twice a day - Bacid one tablet twice a day - metformin 500 mg at night - multivitamin one tablet daily - Protonix 40 mg daily - saline nasal spray 0.65% twice a day - simvastatin 20 mg at night - Flomax 0.4 mg daily - Spiriva 18 mcg inhaled daily Greater than 30 minutes spent organizing discharge.
[2016-10-09 14:00] VITALS: BP 106/56
== END 2016-10-09 17:38 | disposition home or self-care (01) | DRG 871 ==
LOC: M PCU 19:25 → M ICU 10-05 02:41 → M MSPAV 10-07 14:46
PROVIDERS: ADMIT Hospitalist; ATTEND Internal Medicine
PROC: 05HM33Z Insertion of Infusion Device into Right Internal Jugular Vein, Percutaneous Approach (ICD-10-PCS; principal; 2016-10-05)
DX: A41.9 Sepsis, unspecified organism (principal); J18.9 Pneumonia, unspecified organism; J96.91 Respiratory failure, unspecified with hypoxia; G93.41 Metabolic encephalopathy; R65.21 Severe sepsis with septic shock; E87.2 Acidosis; K21.9 Gastro-esophageal reflux disease without esophagitis; E11.9 Type 2 diabetes mellitus without complications; D50.9 Iron deficiency anemia, unspecified; J44.9 Chronic obstructive pulmonary disease, unspecified; I10 Essential (primary) hypertension; E78.5 Hyperlipidemia, unspecified; M19.90 Unspecified osteoarthritis, unspecified site; E66.9 Obesity, unspecified; E87.6 Hypokalemia; I48.91 Unspecified atrial fibrillation; R19.7 Diarrhea, unspecified; E83.42 Hypomagnesemia; R91.1 Solitary pulmonary nodule; R11.2 Nausea with vomiting, unspecified; N40.0 Benign prostatic hyperplasia without lower urinary tract symptoms; K57.90 Diverticulosis of intestine, part unspecified, without perforation or abscess without bleeding; Z79.84 Long term (current) use of oral hypoglycemic drugs; Z79.899 Other long term (current) drug therapy; Z88.5 Allergy status to narcotic agent; Z88.8 Allergy status to other drugs, medicaments and biological substances; Z95.0 Presence of cardiac pacemaker; Z87.891 Personal history of nicotine dependence

== ENCOUNTER → 2016-11-19 | Outpatient (CLI) | payer OTHER ==
[~2016-11-19] MED LIST changes: +CYCL5TA PO; +DICL100T6 PO; +DILT120C PO; +LEVA500T PO; +PANT40TA2 PO; +PROA1AER INH; +SALI0.653
--- NOTE | 2016-11-19 13:57 | REP ---
Clinical: Emphysema. Technique: PA and lateral. Comparison: 10/05/2016. Findings: Mediastinum and cardiac silhouette are stable. Lung kwok demonstrate diffuse chronic interstitial changes. Subtle superimposed acute left lower lobe atelectasis cannot be excluded. No effusion. No pneumothorax. Skeletal structures demonstrate age-related degenerative changes. Impression: Chronic stable changes. Cannot exclude trace left basilar atelectasis. Signed by Noah Rodriguez MD 11/19/2016 01:48 P
== END ==
LOC: M RAD 13:25
PROVIDERS: ATTEND Internal Medicine Pulmonary Disease
DX: J43.2 Centrilobular emphysema (principal)

== ENCOUNTER → 2017-04-07 | Outpatient (REF) | payer OTHER ==
[~2017-04-07] MED LIST changes: +BACITAB PO; -BACITAB3 PO; -CYCL5TA PO; +CYCL5TAB PO; +KEFL250C11 PO; -KEFL250C6 PO; +LEVA1TAB2 PO; -LEVA500T PO; -METF500T PO; +METF500T13 PO; +MIDO2.5T PO; -MIDO25TA PO; -PROA1AER INH; +PROAAER10 INH; +SALI0.6523; -SALI0.653
[2017-04-07 15:11] LABS: BLOOD UREA NITROGEN 12 MG/DL (7-18); CREATININE FOR GFR 0.96 MG/DL (0.70-1.30); GLOMERULAR FILTRATION RATE > 60.0 (>35)
== END ==
LOC: M LAB REF 12:42
PROVIDERS: ATTEND Internal Medicine Pulmonary Disease
DX: R06.00 Dyspnea, unspecified (principal); J18.9 Pneumonia, unspecified organism

== ENCOUNTER → 2017-04-07 | Outpatient (CLI) | payer OTHER ==
[~2017-04-07] MED LIST changes: +ISOVUE-370 76% 100ML VIAL (Q9967) As Ordered ONE
--- NOTE | 2017-04-07 16:49 | REP ---
CT of the chest with IV contrast, CT pulmonary angiography: There are no emboli in the pulmonary trunk or central pulmonary arteries. There are no emboli in the lobe or segment branches. There are no infiltrates or effusions. There are no masses or nodules. There is parenchymal scarring in the right apex, unchanged from 10/04/2016. There is no mediastinal or hilar adenopathy. Thoracic aorta is unremarkable. Cardiac size is normal. The visualized upper abdomen is unremarkable except for surgical clips in the gallbladder fossa. Impression: There are no pulmonary emboli. No infiltrates, effusions, masses or nodules. Signed by Chuck Dotson MD 04/07/2017 04:40 P
== END ==
LOC: M RAD 15:06
PROVIDERS: ATTEND Internal Medicine Pulmonary Disease
DX: R06.00 Dyspnea, unspecified (principal); J18.9 Pneumonia, unspecified organism
CPT/HCPCS: 71275; 82565; 84520; 87449; Q9967

== ENCOUNTER 2018-02-01 23:37 | Inpatient (IN) | payer OTHER ==
[2018-02-02 00:12] LABS: BASO # 0.1 10^3/uL (0.0-0.2); BASO % 0.3 % (0.0-1.0); EOS # 0.1 10^3/uL (0.0-0.50); EOS % 0.4 % (0.0-3.0); HEMATOCRIT 39.2 % (42.0-52.0); HEMOGLOBIN 13.3 g/dl (13.5-17.5); IMMATURE GRANULOCYTE % 0.9 % (0-3.0); LYMPH # 1.4 10^3/uL (1.5-4.5); LYMPH % 6.9 % (24.0-44.0); MEAN CORPUSCULAR HEMOGLOBIN 32.5 pg (27.0-33.0); MEAN CORPUSCULAR HGB CONC 33.9 g/dl (32.0-36.5); MEAN CORPUSCULAR VOLUME 95.8 fl (80.0-96.0); MONO # 1.1 10^3/uL (0.0-0.8); MONO % 5.6 % (0.0-5.0); NEUTROPHILS # 17.2 10^3/uL (1.8-7.7); NEUTROPHILS % 85.9 % (36.0-66.0); PLATELET COUNT, AUTOMATED 185 10^3/uL (150-450); RED BLOOD COUNT 4.09 10^6/uL (4.30-6.10); RED CELL DISTRIBUTION WIDTH 13.2 % (11.5-14.5)
[2018-02-02] MEDS: NOREPINEPHRINE BITARTRATE 8 MG in D5W 492 ML IV ×2 (00:53→01:27)
[2018-02-02 01:00] LABS: LACTIC ACID SEPSIS PROTOCOL 1.5 MMOL/L (0.4-2.0)
[2018-02-02] MEDS: NOREPINEPHRINE BITARTRATE 8 MG in D5W 500 ML IV (01:54)
[2018-02-02 01:57] LABS: LACTIC ACID SEPSIS PROTOCOL 1.8 MMOL/L (0.4-2.0)
[2018-02-02] MEDS ORDERED: IPRATROPIUM 0.5MG/ALBUTEROL 2.5MG INH SOL UD 3ML (DUONEB)(J7620) NEB (02:30)
[2018-02-02] MEDS ORDERED: MIDAZOLAM INJ 2 MG/2 ML VIAL (J2250) As Ordered (03:46)
[2018-02-02] MEDS: AZITHROMYCIN INJ 500 MG, VIAL MATE ADAPTER 1 EACH in D5W 250 ML IV (04:16)
[2018-02-02] MEDS: MIDAZOLAM INJ 2 MG/2 ML VIAL (J2250) IV (04:21)
[2018-02-02] MEDS ORDERED: SODIUM CHLORIDE 0.9% INJ 10 ML SYR IV (04:45)
[2018-02-02 05:04] LABS: HEMATOCRIT 38.3 % (42.0-52.0); HEMOGLOBIN 12.8 g/dl (13.5-17.5); MEAN CORPUSCULAR HGB CONC 33.4 g/dl (32.0-36.5); MEAN CORPUSCULAR VOLUME 95.8 fl (80.0-96.0); PLATELET COUNT, AUTOMATED 180 10^3/uL (150-450); RED CELL DISTRIBUTION WIDTH 13.3 % (11.5-14.5); WHITE BLOOD COUNT 24.3 10^3/uL (4.0-10.0)
[2018-02-02 05:22] LABS: ALBUMIN 2.6 GM/DL (3.2-5.2); ALKALINE PHOSPHATASE 72 U/L (45-117); ALT/SGPT 26 U/L (12-78); ANION GAP 9 MEQ/L (8-16); AST/SGOT 19 U/L (7-37); BILIRUBIN,TOTAL 1.2 MG/DL (0.2-1.0); BLOOD UREA NITROGEN 15 MG/DL (7-18); CALCIUM LEVEL 7.7 MG/DL (8.8-10.2); CARBON DIOXIDE LEVEL 22 MEQ/L (21-32); CHLORIDE LEVEL 105 MEQ/L (98-107); CREATININE FOR GFR 1.14 MG/DL (0.70-1.30); GLOMERULAR FILTRATION RATE > 60.0 (>35); GLUCOSE, FASTING 161 MG/DL (70-100); POTASSIUM SERUM 4.1 MEQ/L (3.5-5.1); SODIUM LEVEL 136 MEQ/L (136-145); TOTAL PROTEIN 5.2 GM/DL (6.4-8.2)
[2018-02-02 05:27] LABS: LACTIC ACID SEPSIS PROTOCOL 2.1 MMOL/L (0.4-2.0)
[2018-02-02] MEDS: SODIUM CHLORIDE 0.9% INJ 10 ML SYR IV ×3 (06:23→21:42)
[2018-02-02] MEDS ORDERED: VANCOMYCIN HCL 750 MG, VIAL MATE ADAPTER 1 EACH in D5W 250 ML IV (07:15)
[2018-02-02] MEDS: PIPERACILLIN/TAZOBACTAM SOD 3.375 GM in D5W MINI-BAG PLUS 50 ML IV ×2 (08:52→16:50)
[2018-02-02] MEDS: ENOXAPARIN 40 MG/0.4 ML SYRINGE (J1650) SC (08:53)
[2018-02-02] MEDS ORDERED: GLUCAGON FOR INJ 1 MG VIAL (J1610) SC (09:00)
[2018-02-02] MEDS ORDERED: DEXTROSE 50% 50 ML SYRINGE IV (09:00)
[2018-02-02] MEDS ORDERED: GLUCOSE 4 GM CHEW TABLET PO (09:00)
[2018-02-02 09:11] LABS: CORTISOL AM 10.2 UG/DL (4.3-22.4)
[2018-02-02 09:22] LABS: BEDSIDE GLUCOSE 109 MG/DL (83-110)
[2018-02-02] MEDS: VANCOMYCIN HCL 1,000 MG, VIAL MATE ADAPTER 1 EACH in D5W 250 ML IV (09:34)
[2018-02-02] MEDS: NS 1,000 ML IV ×2 (09:34→12:15)
[2018-02-02] MEDS: VANCOMYCIN HCL 500 MG in D5W MINI-BAG PLUS 100 ML IV (10:35)
[2018-02-02 11:46] LABS: BEDSIDE GLUCOSE 120 MG/DL (83-110)
[2018-02-02] MEDS: HumaLOG INSULIN (NovoLOG) PER UNIT SC ×3 (13:18→21:00)
[2018-02-02 16:01] LABS: LACTIC ACID SEPSIS PROTOCOL 1.5 MMOL/L (0.4-2.0)
[2018-02-02 17:16] LABS: BEDSIDE GLUCOSE 120 MG/DL (83-110)
[2018-02-02 21:43] LABS: BEDSIDE GLUCOSE 160 MG/DL (83-110)
[2018-02-02] MEDS ORDERED: cefTRIAXone SOD 2 GM in D5W MINI-BAG PLUS 50 ML IV (22:00)
[2018-02-03] MEDS: PIPERACILLIN/TAZOBACTAM SOD 3.375 GM in D5W MINI-BAG PLUS 50 ML IV ×3 (00:22→17:30)
[2018-02-03] MEDS: VANCOMYCIN HCL 1,000 MG, VIAL MATE ADAPTER 1 EACH in D5W 250 ML IV (02:40)
[2018-02-03] MEDS: NS 1,000 ML IV ×2 (02:41→05:00)
[2018-02-03] MEDS: SODIUM CHLORIDE 0.9% INJ 10 ML SYR IV ×3 (05:53→21:25)
[2018-02-03] MEDS: COSYNTROPIN 0.25 MG/ML VIAL (J0834 PER 0.25MG) IV (05:53)
[2018-02-03 06:07] LABS: BASO # 0.1 10^3/uL (0.0-0.2); BASO % 0.4 % (0.0-1.0); EOS # 0.1 10^3/uL (0.0-0.50); EOS % 1.2 % (0.0-3.0); HEMATOCRIT 33.1 % (42.0-52.0); HEMOGLOBIN 11.2 g/dl (13.5-17.5); IMMATURE GRANULOCYTE % 0.7 % (0-3.0); LYMPH # 1.4 10^3/uL (1.5-4.5); LYMPH % 11.7 % (24.0-44.0); MEAN CORPUSCULAR HEMOGLOBIN 32.1 pg (27.0-33.0); MEAN CORPUSCULAR HGB CONC 33.8 g/dl (32.0-36.5); MEAN CORPUSCULAR VOLUME 94.8 fl (80.0-96.0); MONO # 0.7 10^3/uL (0.0-0.8); NEUTROPHILS # 9.6 10^3/uL (1.8-7.7); PLATELET COUNT, AUTOMATED 142 10^3/uL (150-450); RED BLOOD COUNT 3.49 10^6/uL (4.30-6.10); RED CELL DISTRIBUTION WIDTH 13.7 % (11.5-14.5)
[2018-02-03 06:29] LABS: ALBUMIN 2.3 GM/DL (3.2-5.2); ALKALINE PHOSPHATASE 89 U/L (45-117); ALT/SGPT 25 U/L (12-78); ANION GAP 11 MEQ/L (8-16); AST/SGOT 21 U/L (7-37); BILIRUBIN,TOTAL 0.7 MG/DL (0.2-1.0); BLOOD UREA NITROGEN 10 MG/DL (7-18); CARBON DIOXIDE LEVEL 22 MEQ/L (21-32); CHLORIDE LEVEL 108 MEQ/L (98-107); CREATININE FOR GFR 0.96 MG/DL (0.70-1.30); GLOMERULAR FILTRATION RATE > 60.0 (>35); GLUCOSE, FASTING 121 MG/DL (70-100); MAGNESIUM LEVEL 1.8 MG/DL (1.8-2.4); POTASSIUM SERUM 3.5 MEQ/L (3.5-5.1); SODIUM LEVEL 141 MEQ/L (136-145); TOTAL PROTEIN 4.6 GM/DL (6.4-8.2)
[2018-02-03 07:05] LABS: BEDSIDE GLUCOSE 111 MG/DL (83-110)
[2018-02-03] MEDS: HumaLOG INSULIN (NovoLOG) PER UNIT SC ×4 (07:08→21:00)
[2018-02-03] MEDS: ENOXAPARIN 40 MG/0.4 ML SYRINGE (J1650) SC (08:50)
[2018-02-03] MEDS: MULTIVITAMINS/MINERALS THERAP 1 TAB PO (09:00)
[2018-02-03] MEDS: FERROUS SULFATE 325MG TAB PO (09:00)
[2018-02-03] MEDS: TAMSULOSIN 0.4 MG CAP PO (09:00)
[2018-02-03] MEDS: PANTOPRAZOLE 40MG TAB (PROTONIX) PO (09:00)
[2018-02-03 09:56] LABS: CORTISOL 60 MINUTES 14.3 UG/DL
[2018-02-03 09:56] LABS: CORTISOL 30 MINUTES 12.9 UG/DL
[2018-02-03 09:57] LABS: CORTISOL BASELINE 8.6 UG/DL (4.3-22.4)
[2018-02-03 11:41] LABS: BEDSIDE GLUCOSE 117 MG/DL (83-110)
[2018-02-03 16:26] LABS: BEDSIDE GLUCOSE 116 MG/DL (83-110)
[2018-02-03] MEDS: HYDROCORTISONE 10 MG TAB PO ×2 (17:29→21:24)
[2018-02-03 20:56] LABS: BEDSIDE GLUCOSE 180 MG/DL (83-110)
[2018-02-03] MEDS: SIMVASTATIN 20 MG TAB PO (21:24)
[2018-02-03] MEDS: SODIUM CHLORIDE NASAL 0.65% SPRAY BTL (OCEAN) (21:25)
[2018-02-04] MEDS: PIPERACILLIN/TAZOBACTAM SOD 3.375 GM in D5W MINI-BAG PLUS 50 ML IV ×2 (00:26→07:44)
[2018-02-04 05:57] LABS: BASO % 0.4 % (0.0-1.0); EOS % 0.4 % (0.0-3.0); HEMOGLOBIN 10.9 g/dl (13.5-17.5); IMMATURE GRANULOCYTE % 0.6 % (0-3.0); LYMPH % 14.9 % (24.0-44.0); MEAN CORPUSCULAR HEMOGLOBIN 31.9 pg (27.0-33.0); MEAN CORPUSCULAR HGB CONC 34.1 g/dl (32.0-36.5); MEAN CORPUSCULAR VOLUME 93.6 fl (80.0-96.0); MONO # 0.5 10^3/uL (0.0-0.8); MONO % 6.7 % (0.0-5.0); NEUTROPHILS # 5.3 10^3/uL (1.8-7.7); PLATELET COUNT, AUTOMATED 147 10^3/uL (150-450); RED BLOOD COUNT 3.42 10^6/uL (4.30-6.10); RED CELL DISTRIBUTION WIDTH 13.3 % (11.5-14.5); WHITE BLOOD COUNT 6.9 10^3/uL (4.0-10.0)
[2018-02-04] MEDS: SODIUM CHLORIDE 0.9% INJ 10 ML SYR IV (06:00)
[2018-02-04 06:18] LABS: ALBUMIN 2.4 GM/DL (3.2-5.2); ALKALINE PHOSPHATASE 92 U/L (45-117); ALT/SGPT 26 U/L (12-78); ANION GAP 9 MEQ/L (8-16); AST/SGOT 15 U/L (7-37); BILIRUBIN,TOTAL 0.6 MG/DL (0.2-1.0); BLOOD UREA NITROGEN 9 MG/DL (7-18); CALCIUM LEVEL 8.4 MG/DL (8.8-10.2); CARBON DIOXIDE LEVEL 24 MEQ/L (21-32); CHLORIDE LEVEL 107 MEQ/L (98-107); CREATININE FOR GFR 0.96 MG/DL (0.70-1.30); GLOMERULAR FILTRATION RATE > 60.0 (>35); GLUCOSE, FASTING 144 MG/DL (70-100); MAGNESIUM LEVEL 1.9 MG/DL (1.8-2.4); POTASSIUM SERUM 3.7 MEQ/L (3.5-5.1); SODIUM LEVEL 140 MEQ/L (136-145); TOTAL PROTEIN 4.8 GM/DL (6.4-8.2)
[2018-02-04] MEDS: HumaLOG INSULIN (NovoLOG) PER UNIT SC ×4 (07:44→20:12)
[2018-02-04] MEDS: HYDROCORTISONE 10 MG TAB PO ×3 (08:08→20:12)
[2018-02-04] MEDS: TAMSULOSIN 0.4 MG CAP PO (08:08)
[2018-02-04] MEDS: SODIUM CHLORIDE NASAL 0.65% SPRAY BTL (OCEAN) ×2 (08:08→20:12)
[2018-02-04] MEDS: ENOXAPARIN 40 MG/0.4 ML SYRINGE (J1650) SC (08:08)
[2018-02-04] MEDS: MULTIVITAMINS/MINERALS THERAP 1 TAB PO (08:08)
[2018-02-04] MEDS: PANTOPRAZOLE 40MG TAB (PROTONIX) PO (08:08)
[2018-02-04] MEDS: FERROUS SULFATE 325MG TAB PO (08:08)
[2018-02-04 11:40] LABS: BEDSIDE GLUCOSE 173 MG/DL (83-110)
[2018-02-04] MEDS: LevoFLOXacin 750 MG TABLET PO (12:06)
[2018-02-04 16:33] LABS: BEDSIDE GLUCOSE 132 MG/DL (83-110)
[2018-02-04 20:09] LABS: BEDSIDE GLUCOSE 193 MG/DL (83-110)
[2018-02-04] MEDS: SIMVASTATIN 20 MG TAB PO (20:12)
[2018-02-05] MEDS: ACETAMINOPHEN TAB 650MG DOSE (2X325MG) PO (02:30)
[2018-02-05] MEDS: LevoFLOXacin 750 MG TABLET PO (05:15)
[2018-02-05 09:14] LABS: BEDSIDE GLUCOSE 184 MG/DL (83-110)
[2018-02-05] MEDS: ENOXAPARIN 40 MG/0.4 ML SYRINGE (J1650) SC (09:31)
[2018-02-05] MEDS: PANTOPRAZOLE 40MG TAB (PROTONIX) PO (09:32)
[2018-02-05] MEDS: HumaLOG INSULIN (NovoLOG) PER UNIT SC ×2 (09:32→11:56)
[2018-02-05] MEDS: MULTIVITAMINS/MINERALS THERAP 1 TAB PO (09:33)
[2018-02-05] MEDS: HYDROCORTISONE 10 MG TAB PO (09:33)
[2018-02-05] MEDS: FERROUS SULFATE 325MG TAB PO (09:33)
[2018-02-05] MEDS: TAMSULOSIN 0.4 MG CAP PO (09:33)
[2018-02-05] MEDS: SODIUM CHLORIDE NASAL 0.65% SPRAY BTL (OCEAN) (09:34)
[2018-02-05 10:02] LABS: BASO % 0.6 % (0.0-1.0); EOS # 0.1 10^3/uL (0.0-0.50); EOS % 1.3 % (0.0-3.0); HEMATOCRIT 32.6 % (42.0-52.0); HEMOGLOBIN 11.1 g/dl (13.5-17.5); IMMATURE GRANULOCYTE % 0.6 % (0-3.0); LYMPH # 1.7 10^3/uL (1.5-4.5); LYMPH % 32.3 % (24.0-44.0); MEAN CORPUSCULAR HEMOGLOBIN 32.2 pg (27.0-33.0); MEAN CORPUSCULAR VOLUME 94.5 fl (80.0-96.0); MONO # 0.5 10^3/uL (0.0-0.8); MONO % 9.9 % (0.0-5.0); NEUTROPHILS % 55.3 % (36.0-66.0); PLATELET COUNT, AUTOMATED 156 10^3/uL (150-450); RED BLOOD COUNT 3.45 10^6/uL (4.30-6.10); RED CELL DISTRIBUTION WIDTH 13.4 % (11.5-14.5); WHITE BLOOD COUNT 5.4 10^3/uL (4.0-10.0)
[2018-02-05 10:34] LABS: ALBUMIN 2.5 GM/DL (3.2-5.2); ALBUMIN/GLOBULIN RATIO 0.89 (1.00-1.93); ALKALINE PHOSPHATASE 93 U/L (45-117); ALT/SGPT 27 U/L (12-78); ANION GAP 9 MEQ/L (8-16); AST/SGOT 16 U/L (7-37); BILIRUBIN,TOTAL 0.3 MG/DL (0.2-1.0); BLOOD UREA NITROGEN 11 MG/DL (7-18); CALCIUM LEVEL 8.5 MG/DL (8.8-10.2); CARBON DIOXIDE LEVEL 24 MEQ/L (21-32); CHLORIDE LEVEL 108 MEQ/L (98-107); CREATININE FOR GFR 0.93 MG/DL (0.70-1.30); GLOMERULAR FILTRATION RATE > 60.0 (>35); GLUCOSE, FASTING 155 MG/DL (70-100); MAGNESIUM LEVEL 1.9 MG/DL (1.8-2.4); POTASSIUM SERUM 3.7 MEQ/L (3.5-5.1); SODIUM LEVEL 141 MEQ/L (136-145); TOTAL PROTEIN 5.3 GM/DL (6.4-8.2)
[2018-02-05 11:49] LABS: BEDSIDE GLUCOSE 68 MG/DL (83-110)
== END 2018-02-05 14:02 | disposition home or self-care (01) | DRG 871 ==
LOC: M MSPAV 02-05 03:04 → M ED 23:37 → M ED INP 02-02 01:54 → M ICU 02-02 02:58
PROC: 02HV33Z Insertion of Infusion Device into Superior Vena Cava, Percutaneous Approach (ICD-10-PCS; principal; 2018-02-02)
DX: A41.9 Sepsis, unspecified organism (principal); R65.21 Severe sepsis with septic shock; J18.9 Pneumonia, unspecified organism; J44.0 Chronic obstructive pulmonary disease with (acute) lower respiratory infection; E27.40 Unspecified adrenocortical insufficiency; I50.32 Chronic diastolic (congestive) heart failure; D64.9 Anemia, unspecified; N40.0 Benign prostatic hyperplasia without lower urinary tract symptoms; K21.9 Gastro-esophageal reflux disease without esophagitis; Z95.0 Presence of cardiac pacemaker; I11.0 Hypertensive heart disease with heart failure; I48.91 Unspecified atrial fibrillation; I27.20 Pulmonary hypertension, unspecified; E78.5 Hyperlipidemia, unspecified; Z98.49 Cataract extraction status, unspecified eye; Z87.891 Personal history of nicotine dependence; Z79.84 Long term (current) use of oral hypoglycemic drugs; Z79.899 Other long term (current) drug therapy; Z88.5 Allergy status to narcotic agent; Z88.8 Allergy status to other drugs, medicaments and biological substances

== ENCOUNTER 2018-03-23 08:09 | Outpatient (CLI) | payer OTHER ==
[2018-03-23] MEDS: COSYNTROPIN 0.25 MG/ML VIAL (J0834 PER 0.25MG) IV (08:43)
[2018-03-23 10:06] LABS: CORTISOL BASELINE 3.1 UG/DL (4.3-22.4)
[2018-03-23 10:06] LABS: CORTISOL 30 MINUTES 5.8 UG/DL
[2018-03-23 10:44] LABS: CORTISOL 60 MINUTES 6.3 UG/DL
== END 2018-03-23 10:15 | disposition home or self-care (01) ==
LOC: M INFU 08:09
DX: E27.40 Unspecified adrenocortical insufficiency (principal); I25.2 Old myocardial infarction; E78.00 Pure hypercholesterolemia, unspecified; E78.5 Hyperlipidemia, unspecified; I10 Essential (primary) hypertension; J44.9 Chronic obstructive pulmonary disease, unspecified; N40.0 Benign prostatic hyperplasia without lower urinary tract symptoms; E11.9 Type 2 diabetes mellitus without complications; Z79.899 Other long term (current) drug therapy; Z79.84 Long term (current) use of oral hypoglycemic drugs; Z95.0 Presence of cardiac pacemaker; Z98.1 Arthrodesis status; Z90.49 Acquired absence of other specified parts of digestive tract; Z87.891 Personal history of nicotine dependence; Z88.8 Allergy status to other drugs, medicaments and biological substances
CPT/HCPCS: J0834

== ENCOUNTER 2018-04-13 06:18 | Outpatient (CLI) | payer OTHER ==
[2018-04-13] MEDS: COSYNTROPIN 0.25 MG/ML VIAL (J0834 PER 0.25MG) IV (06:57)
[2018-04-13 09:10] LABS: CORTISOL 60 MINUTES 9.2 UG/DL
[2018-04-13 10:35] LABS: CORTISOL BASELINE 2.9 UG/DL (4.3-22.4)
== END 2018-04-13 08:50 | disposition home or self-care (01) ==
LOC: M INFU 06:18
DX: E27.40 Unspecified adrenocortical insufficiency (principal)
CPT/HCPCS: J0834

== ENCOUNTER → 2018-04-29 | Outpatient (CLI) | payer OTHER | LOC: M CARPUL 10:12 | DX: R06.00 Dyspnea, unspecified (principal) | CPT/HCPCS: 94060 ==

== ENCOUNTER → 2018-11-12 | Outpatient (REF) | payer MEDICARE ==
[~2018-11-12] MED LIST changes: +CORT10TA PO; -DILT120C PO; +DILT120C77 PO; -DILT120C82 PO; +DILT1CAP PO; +FERR1TAB8 PO; +FLOM0.4C39 PO; -FLOM5CAP PO; +GABA-1171 PO; -GABA-279 PO; +IPRA0.00 IN; +IPRA0.00 INH; -IPRASOL4 IN; -ISOVUE-370 76% 100ML VIAL (Q9967) As Ordered ONE; +LEVA750T7 PO; +MIDO10TA PO; +OCEA0.654; -PANT40TA2 PO; +PANT40TA3 PO; -SALI0.6523; +SALI0.6528
[2018-11-12 18:26] LABS: TOTAL PROTEIN 6.3 GM/DL (6.4-8.2)
[2018-11-16 10:49] LABS: ALBUMIN % 62.2 % (55.8-66.1)
[2018-11-16 10:50] LABS: ALBUMIN 3.92 GM/DL (3.29-5.55); ALPHA-1-GLOBULIN % 5.5 % (2.9-4.9); ALPHA-1-GLOBULINS 0.35 GM/DL (0.17-0.41); ALPHA-2-GLOBULINS 0.89 GM/DL (0.42-0.99); ALPHA-2-GLOBULINS % 14.1 % (7.1-11.8); BETA-1-GLOBULINS 0.42 GM/DL (0.28-0.60); BETA-1-GLOBULINS % 6.6 % (4.7-7.2); BETA-2-GLOBULINS 0.27 GM/DL (0.19-0.55); BETA-2-GLOBULINS % 4.3 % (3.2-6.5); GAMMA GLOBULIN % 7.3 % (11.1-18.8); GAMMA GLOBULINS 0.46 GM/DL (0.65-1.58)
== END ==
LOC: M LAB REF 16:26
PROVIDERS: ATTEND Internal Medicine
DX: S34.11 Complete lesion of lumbar spinal cord (principal); X58.XXXD Exposure to other specified factors, subsequent encounter

== ENCOUNTER → 2018-11-18 | Outpatient (REF) | payer MEDICARE ==
[2018-11-23 13:38] LABS: IMMUNOTYPING SERUM IGG ABNORMAL (NORMAL); IMMUNOTYPING SERUM LAMBDA ABNORMAL (NORMAL)
== END ==
LOC: M LAB REF 17:52
PROVIDERS: ATTEND Internal Medicine
DX: B09 Unspecified viral infection characterized by skin and mucous membrane lesions (principal)

== ENCOUNTER → 2018-11-30 | Outpatient (REF) | payer MEDICARE ==
[2018-11-30 13:38] LABS: IMMUNOGLOBULIN G 360 MG/DL (681-1648); IMMUNOGLOBULIN M 29.2 MG/DL (40-230); PTH INTACT 58.2 PG/ML (18.5-88.0); RHEUMATOID FACTOR QUANT < 10.0 IU/ML (<15.0)
[2018-11-30 13:46] LABS: TOTAL PROTEIN,RANDOM URINE 17.6 MG/DL (0.0-12.0); URINE TOTAL PROTEIN 17.6 MG/DL (0-12)
[2018-12-02 09:55] LABS: UPEP INTERPRETATION NO M-SPIKE NOTED; URINE VOLUME RANDOM ML
[2018-12-06 15:22] LABS: FREE KAPPA LIGHT CHAINS SERUM 16.3 mg/L (3.3-19.4); FREE LAMBDA LIGHT CHAINS SERUM 13.5 mg/L (5.7-26.3); HLA-B27 Negative (.); KAPPA/LAMBDA RATIO SERUM 1.21 (0.26-1.65)
== END ==
LOC: M LAB REF 12:35
PROVIDERS: ATTEND Internal Medicine
DX: R77.9 Abnormality of plasma protein, unspecified (principal); M54.5 Low back pain; E27.40 Unspecified adrenocortical insufficiency

== ENCOUNTER → 2018-12-08 | Outpatient (REF) | payer MEDICARE, OTHER ==
[2018-12-08 18:52] LABS: C REACTIVE PROTEIN QUANTITATIV 20.1 MG/DL (0.00-0.30); URIC ACID 4.2 MG/DL (3.5-7.2)
== END ==
LOC: M LAB REF 17:01
PROVIDERS: ATTEND Internal Medicine
DX: M25.512 Pain in left shoulder (principal)

== ENCOUNTER → 2019-01-04 | Outpatient (REF) | payer MEDICARE, OTHER | LOC: M LAB REF 16:30 | PROVIDERS: ATTEND Internal Medicine | DX: R79.82 Elevated C-reactive protein (CRP) (principal) ==

== ENCOUNTER 2019-03-14 10:54 | Day surgery (SDC) | payer MEDICARE ==
[~2019-03-14] VITALS: Ht 180.3 cm; Wt 68.9 kg
[~2019-03-14 10:54] MED LIST changes: +ASPI81TA85 PO; +CART180C3 PO; +LIDOCAINE 2% INJ 100 MG/5 ML SDV (FOR ANES.) As Ordered ONE; +METF-791 PO; -METF500T4 PO; +NS 1,000 ML IV ONE; +PRED5PAK PO; +PROPOFOL 200 MG/20 ML VIAL As Ordered ONE; +TIZA2TAB4 PO
--- NOTE | 2019-03-14 13:10 | ROOR ---
Patient Name: Ravindra Jimenez Procedure Date: 03/14/2019 1:00 PM Date of : 1930 Age: 88 Room: [facility] Gender: Male Note Status: Finalized Procedure: Upper GI endoscopy Indications: Heartburn, Abnormal UGI series Providers: Carroll NEGRO MD Referring MD: Minda WAITE MD Requesting Provider: Medicines: Monitored Anesthesia Care Complications: No immediate complications. Procedure: Pre-Anesthesia Assessment: - The heart rate, respiratory rate, oxygen saturations, blood pressure, adequacy of pulmonary ventilation, and response to care were monitored throughout the procedure. The Endoscope was introduced through the mouth, and advanced to the second part of duodenum. The upper GI endoscopy was accomplished without difficulty. The patient tolerated the procedure well. Findings: The esophagus was normal. The stomach was normal. The examined duodenum was normal. Impression: - Normal esophagus. - Normal stomach. - Normal examined duodenum. - No specimens collected. Recommendation: - Continue present medications. - Observe patient's clinical course. - Follow an antireflux regimen. Carroll Negro MD Carroll NEGRO MD 03/14/2019 1:09:57 PM Electronically signed by Carroll NEGRO MD Number of Addenda: 0 Note Initiated On: 03/14/2019 1:00 PM Estimated Blood Loss: Estimated blood loss: none.
[2019-03-14 13:30] VITALS: BP 111/69
== END 2019-03-14 14:16 | disposition home or self-care (01) ==
LOC: M OPP 10:54
PROVIDERS: ATTEND Internal Medicine Gastroenterology
DX: R93.3 Abnormal findings on diagnostic imaging of other parts of digestive tract (principal); R12 Heartburn; K21.9 Gastro-esophageal reflux disease without esophagitis; E11.9 Type 2 diabetes mellitus without complications; Z79.82 Long term (current) use of aspirin; Z79.899 Other long term (current) drug therapy; Z88.5 Allergy status to narcotic agent; Z88.8 Allergy status to other drugs, medicaments and biological substances; Z95.0 Presence of cardiac pacemaker; Z87.891 Personal history of nicotine dependence